=== PATIENT | female | born 1985 | race Caucasian/White ===

== ENCOUNTER 2018-05-03 14:50 | Inpatient (IN) ==
[2018-05-03] MEDS ORDERED: Naloxone 0.4 MG/ML INJ IVP PRN (17:50)
[2018-05-03] MEDS ORDERED: Ringers Solution, Lactated 1,000 ML IVC ONE (17:58)
--- NOTE | 2018-05-03 18:00 | Internal Med History&Physical ---
Date of Encounter: 05/03/18 Time of Encounter: 18:00 Internal Medicine - H&P: HPI History of present illness: Patient is a 33 year old female , 8 days post presented to [facility] for abnormal labs. She was having labs done for abdominal pain and labs were abnormal so was told to be seen. Patient states she has had bilateral flank pain for one week. Since , she has been taking Ibuprofen 800 mg tablets Q6h prn abdominal pain. Patient takes on average 1-2 tablets per day. She also has had nausea and has had little water intake in past several days. Patient has reviewed [facility] labs with me on her phone. Most notable for WBC of 16 , H&H 10.2, Neutrophils 81%, BUN 55, Creatinine 3.320, WBC 16k. She was also getting workup for a UTI. She received a message from her provider that her urine was positive for E coli. She was intended to go to [facility] for workup and treatment, but those beds are full and so she was recommended to go to [facility] for further eval. When patient arrived to [facility] ED, she was given IV bolus. Her vital signs were unremarkable, Temp 98F, BP 120/63, HR 51, normal O2 saturation. Labs re-demonstrated elevated creatinine this time was 3.91, with BUN 83, bicarb is 13 with elevated anion gap 17. She had WBC 17, Alk phos is 156, and AST/ALT are normal. A CT abdomen/pelvis was done showing splenomegaly , and enlarged uterus findings that are consistent with recent state. She denies fevers/chills. Admits to n/v, dysuria. Past Med Surg Social Fam HX - Past Medical History Medical history: no medical history, other Psychiatric history: no psych history - Past Surgical History Surgical History: cholecystectomy Additional surgical history: TOP TEETH REMOVED - Social History Smoking Status: Former smoker Smokeless Tobacco Status: No Alcohol use: none Drug use: none Internal Medicine - H&P: Meds Buprenorphine HCl/Naloxone HCl [Buprenorphin-Naloxon 8-2 mg Sl] 2 tab SL DAILY 05/03/18 [History] Dicyclomine [Bentyl] 10 mg PO QID 05/03/18 [History] Docusate Sodium [Colace] 100 mg PO BID PRN 05/03/18 [History] Ibuprofen [Ibuprofen] 800 mg PO TID PRN 05/03/18 [History] Omeprazole [PriLOSEC] 20 mg PO DAILY 05/03/18 [History] Vits #90/Iron Fum/FA [ Formula Tablet] 1 tab PO DAILY 05/03/18 [History] cephALEXin [Keflex] 500 mg PO QID 05/03/18 [History] 3 Allergy/AdvReac Type Severity Reaction Status Date / Time No Known Allergies Allergy Verified 05/03/18 17:39 All Systems PM: A 10-system review of systems was performed and is negative for pertinent findings except as documented above in the HPI. - Constitutional Constitutional: no fatigue, no fever(s), no lethargy, no night sweats, no weakness - Cardiovascular Cardiovascular ROS IM: no chest pain, no claudication, no diaphoresis, no dyspnea, no lightheadedness, no orthopnea - Respiratory Respiratory: no dyspnea, no dyspnea on exertion - Gastrointestinal Gastrointestinal: abdominal pain, constipation, nausea, no change in bowel habits, no change in stool character, no diarrhea, no dyspepsia, no melena, no vomiting - Genitourinary Genitourinary: dysuria, no hematuria - Musculoskeletal Musculoskeletal ROS IM: no numbness, no tingling - Integumentary Integumentary IM: no rash, no unusual bruising - Neurological Neurological ROS: no confusion, no convulsions, no focal weakness, no numbness, no tingling, no tremor(s) - Constitutional Vitals: Temp Pulse Resp BP Pulse Ox 98.3 F 76 19 106/69 99 05/03/18 17:02 05/03/18 17:02 05/03/18 17:02 05/03/18 17:02 05/03/18 17:02 Exam: Mucus membranes dry. - Head Head exam: Present: atraumatic, normocephalic - Eye Eye exam: Present: PERRL, conjuntiva pink, sclera anicteric Pupils: Present: PERRL - Neck Neck exam general surgery: Present: supple, trachea midline. Absent: lymphadenopathy - Respiratory Respiratory exam: Present: CTAB. Absent: accessory muscle use, rales, rhonchi, wheezes - Cardiovascular Cardiovascular exam: Present: RRR, +S1, +S2. Absent: diastolic murmur, gallop, rubs, systolic murmur - GI/Abdominal GI/Abdominal exam: Present: normal bowel sounds, soft, tenderness, no peritoneal signs. Absent: distended - Extremities Exam Extremities exam: Present: warm, radial pulses palpable and symmetrical. Absent : calf tenderness, cyanotic, pedal edema - Neurological Exam Neurological exam: Present: CN II-XII intact, oriented X3, no focal deficits. Absent: pronater drift, facial droop, speech deficit - Skin Skin exam: Present: dry, intact - Assessment and plan (1) Acute renal failure after delivery, delivered w/ condition Current Visit: No Status: Acute Assessment and plan: Suspect cause is combination of pre-renal or renal based on dehydration from poor PO intake and nausea, and NSAID use after . CT abdomen/pelvis did not show any renal abnormalities. Urinalysis showed proteinuria. Creatinine as outpatient was 3.320 and at [facility] worsened to 3.91. - Consult Nephrology - Obtain FENA, urine eosinophils - IV fluid hydration - Hold nephrotoxic agents, including NSAIDs - Recheck BMP in AM (2) UTI (urinary tract infection) Current Visit: No Status: Acute Assessment and plan: Cultures from outside facility came back + E coli 1 SIRS criteria, patient not septic. Start Rocephin Follow-up sensitivities Qualifiers: Urinary tract infection type: site unspecified Hematuria presence: with hematuria Qualified Code(s): N39.0 - Urinary tract infection, site not specified; R31.9 - Hematuria, unspecified (3) Anemia, Current Visit: Yes Status: Acute Assessment and plan: Recheck in AM< note that she is receiving IV fluids today and may have hemodilution on AM labs. (4) DVT prophylaxis Current Visit: Yes Status: Acute Assessment and plan: Heparin 5,000 units Q8H SQ - Time Spent With Patient Total time spent is greater than 50% in coordination of care (as documented) at patient's floor/unit and/or counseling patient:
[2018-05-03] MEDS: cefTRIAXone 1,000 MG in Water for inj. (sterile) 20 ML 10 ML IVP SCH (18:19)
[2018-05-03 19:35] LABS: Sodium, Urine 65.2 mEq/L
[2018-05-03] MEDS: Ringers Solution, Lactated 1,000 ML IVC SCH (19:53)
[2018-05-04] MEDS: *HR* Heparin 5,000 UNIT/ML VIAL SQ SCH ×3 (00:18→16:18)
[2018-05-04] MEDS: Ringers Solution, Lactated 1,000 ML IVC SCH (02:35)
[2018-05-04 05:01] LABS: Basophils % 0.3 %; Eosinophils # 0.1 K/mcL (0.0-0.6); Eosinophils % 0.7 %; Hematocrit 31.2 % (35.3-44.9); Hemoglobin 9.9 g/dL (11.5-15.4); Immature Granulocytes % 2.1 % (0-4); Lymphocytes # 1.8 K/mcL (0.6-4.6); Lymphocytes % 15.9 %; Mean Corpuscular HGB Conc 31.7 g/dL (31.6-35.5); Mean Corpuscular Hemoglobin 28.6 pg (28.0-33.3); Mean Corpuscular Volume 90.2 fL (83.0-100.0); Mean Platelet Volume 10.1 fL (9.4-12.4); Monocytes # 0.6 K/mcL (0.0-1.3); Monocytes % 5.3 %; Neutrophils # 8.4 K/mcL (1.6-8.9); Platelet Count 238 K/mcL (140-400); Red Blood Count 3.46 M/mcL (3.82-4.97); Red Cell Distribution Width 15.2 % (11.5-14.5); Segmented Neutrophils % 75.7 %
[2018-05-04 05:20] LABS: Calcium 8.2 mg/dL (8.6-10.3); Potassium 3.8 mEq/L (3.5-5.1)
[2018-05-04 05:24] LABS: Platelet Estimate Normal (Normal); Reactive Lymphocytes Present (Not Present)
[2018-05-04] MEDS: cefTRIAXone 1,000 MG in Water for inj. (sterile) 20 ML 10 ML IVP SCH (08:06)
[2018-05-04] MEDS: Prenatal Vit/FA 1 EACH TABLET PO SCH (08:07)
[2018-05-04] MEDS: BUPRENORPHINE HCL SL SCH (08:09)
[2018-05-04] MEDS: NALOXONE HCL SL SCH (08:09)
[2018-05-04] MEDS: Acetaminophen 325 MG TABLET PO PRN ×3 (08:13→22:54)
--- NOTE | 2018-05-04 09:45 | Internal Med Progress Note ---
<Em Gonzalez - Last Filed: 05/04/18 14:59> Hospitalist Progress Note - Encounter Date of Encounter: 05/04/18 Time of Encounter: 09:39 - Subjective Interval History: Ms. Alatorre is a 33 yo now 13 days who presented to [facility] on with complaints of abdominal pain. She states approximately 5 days post- she began to experience bilateral abdominal pain, worsened with coughing , deep breaths, and movement. She states she had a couple measurements of elevated blood pressure during her , she had a normal vaginal , and is now breast-feeding. She admits increased frequency and feeling of incomplete emptying after urinating but denies any hematuria or dysuria. She continues to have vaginal spotting but denies any fever, chills, CP, shortness of breath. She drinks 6 cans of soda per day and states she does not drink much water. Today the patient is feeling slightly improved. She states she has continued abdominal pain with deep breaths. She is eating and drinking well. - Exam Vitals: Temp Pulse Resp BP Pulse Ox 98.7 F 88 20 107/66 98 05/04/18 07:50 05/04/18 07:50 05/04/18 07:50 05/04/18 07:50 05/04/18 07:50 Exam: Mucus membranes dry. - Assessment and Plan (1) YAEL (acute kidney injury) Current Visit: Yes Status: Acute Assessment and Plan: - Cr elevated to 3.91 at [facility], today is down to 2.99 - Continue fluids at 150ml/hour LR - Urine sodium 65.2, urine total protein 122, albumin 2.8 - No evidence of edema indicative of nephrotic syndrome, BP stable making preeclampsia unlikely though reportedly they were high during , BUN/Cr >20 indicating likely prerenal etiology - Consulting nephrology, they have discontinued prilosec - Avoiding nephrotoxic medications (2) UTI (urinary tract infection) Current Visit: Yes Status: Acute Assessment and Plan: -Continue rocephin - Urine cultures pending - [facility] contacted to obtain culture sensitivities (3) Anemia, Current Visit: Yes Status: Acute Assessment and Plan: - Hemoglobin 9.9 today, down from 10.1 at [facility], likely dilutional - Will continue to monitor with CBC (4) DVT prophylaxis Current Visit: Yes Status: Acute - Time Spent with Patient Total time spent is greater than 50% in coordination of care (as documented) at patient's floor/unit and/or counseling patient: Internal Medicine: Result - Labs CBC & Chem 7: 05/04/18 03:54 05/04/18 03:54 Labs: Short CBC 05/04/18 Range/Units 03:54 WBC 11.1 (4.3-11.1) K/mcL Hgb 9.9 L (11.5-15.4) g/dL Hct 31.2 L (35.3-44.9) % Plt Count 238 (140-400) K/mcL Neutrophils # 8.4 (1.6-8.9) K/mcL BMP 05/04/18 03:54 Sodium 140 Potassium 3.8 Chloride 113 H Carbon Dioxide 17 L BUN 69 H Creatinine 2.99 H Glucose 72 Calcium 8.2 L Consult Discharge Plan - Plan Referrals: NONE,PCP [Primary Care Provider] - <Susanne Garcia - Last Filed: 05/04/18 15:09> Hospitalist Progress Note - Encounter Date of Encounter: 05/04/18 - Exam Vitals: Temp Pulse Resp BP Pulse Ox 98.0 F 82 19 101/51 96 05/04/18 11:21 05/04/18 11:21 05/04/18 11:21 05/04/18 11:21 05/04/18 11:21 - Assessment and Plan (1) Acute renal failure after delivery, delivered w/ condition Current Visit: No Status: Inactive (2) UTI (urinary tract infection) Current Visit: No Status: Inactive (3) Anemia, Current Visit: Yes Status: Acute (4) DVT prophylaxis Current Visit: Yes Status: Acute - Time Spent with Patient Total time spent is greater than 50% in coordination of care (as documented) at patient's floor/unit and/or counseling patient: Internal Medicine: Result - Labs CBC & Chem 7: 05/04/18 03:54 05/04/18 03:54 Labs: Short CBC 05/04/18 Range/Units 03:54 WBC 11.1 (4.3-11.1) K/mcL Hgb 9.9 L (11.5-15.4) g/dL Hct 31.2 L (35.3-44.9) % Plt Count 238 (140-400) K/mcL Neutrophils # 8.4 (1.6-8.9) K/mcL BMP 05/04/18 03:54 Sodium 140 Potassium 3.8 Chloride 113 H Carbon Dioxide 17 L BUN 69 H Creatinine 2.99 H Glucose 72 Calcium 8.2 L - Attending Attestation I examined this patient and my medical decision-making was reviewed with the Resident Physician. I agree with the documented findings, disposition and treatment plan as described except to the extent set forth below. <Susanne Garcia - Last Filed: 05/04/18 15:09> (2) UTI (urinary tract infection) Qualifiers: Urinary tract infection type: site unspecified Hematuria presence: with hematuria Qualified Code(s): N39.0 - Urinary tract infection, site not specified; R31.9 - Hematuria, unspecified
--- NOTE | 2018-05-04 11:11 | Nephrology Consult Note ---
Date of Encounter: 05/04/18 Time of Encounter: 11:00 Assessment and Plan (1) YAEL (acute kidney injury) Current Visit: Yes Status: Acute 34 day #9. Patient has been borderline hypotensive since admission. YAEL likely due to ATN from nephrotoxins. Other possible causes of ATN includes volume depletion and ischemia. Patient denies vomiting, diarrhea, or bleeding. Does not use diuresis. She does appear dry. She has also been using ibuprofen 800mg q6H since she gave and chronically uses prilosec. patient has no symptoms of reflux. Denies nausea, vomiting since admission. I will d/c prilosec for now. UA reviewed: urine creatinine and sodium are unremarkable, but does have increased total protein. Pending Urine osm. Continue IV fluids. Avoid nephrotoxins if possible. Strict I/Os. I expect her kidney function to gradually improve. (2) Anemia, Current Visit: Yes Status: Acute Stable. Continue to monitor. (3) UTI (urinary tract infection) Current Visit: Yes Status: Acute Antibiotics can be nephrotoxic but Ok to continue in the setting of UTI. Qualifiers: Qualified Code(s): N39.0 - Urinary tract infection, site not specified; R31.9 - Hematuria, unspecified History of Present Illness - Reason for Consult Consult date: 05/04/18 Acute Kidney Injury - Chief Complaint Abdominal pain and abnormal labs - History of Present Illness 33 3P3 9 days post presented to [facility] ED yesterday for abnormal labs. She has had flank pain for 1 week and had lab work done which demonstrated worsened kidney function. She was told to go to ED due to abnormal labs for further work- up. Since , she has been taking Ibuprofen 800 mg tablets Q6h prn abdominal pain. Patient takes on average 1-2 tablets per day. She also has had nausea and has had little water intake in past several days. Outpatient lab work was notable for WBC of 16, H&H 10.2, Neutrophils 81%, BUN 55, Creatinine 3.32, WBC 16k. Her urine was also positive for E. Coli. She received IVF at [facility], alk phos 156, AST/ALT were unremarkable. CT deomonstrated splenomegaly and enlarged uterus consistent with PP state. Today, she denies f/c/n/v. Her flank pain has improved and no longer has dysuria, hematuria. She does admit to lochia, but no malodorous discharge. She has no acute complaints. Past Med Surg Social Fam HX - Past Medical History Medical history: no medical history, other Psychiatric history: no psych history - Past Surgical History Surgical History: cholecystectomy Additional surgical history: TOP TEETH REMOVED - Social History Smoking Status: Former smoker Smokeless Tobacco Status: No Alcohol use: none Drug use: none Medications and Allergies Buprenorphine HCl/Naloxone HCl [Buprenorphin-Naloxon 8-2 mg Sl] 2 tab SL DAILY 05/03/18 [History] Dicyclomine [Bentyl] 10 mg PO QID 05/03/18 [History] Docusate Sodium [Colace] 100 mg PO BID PRN 05/03/18 [History] Ibuprofen [Ibuprofen] 800 mg PO TID PRN 05/03/18 [History] Omeprazole [PriLOSEC] 20 mg PO DAILY 05/03/18 [History] Vits #90/Iron Fum/FA [ Formula Tablet] 1 tab PO DAILY 05/03/18 [History] cephALEXin [Keflex] 500 mg PO QID 05/03/18 [History] 3 Allergy/AdvReac Type Severity Reaction Status Date / Time No Known Allergies Allergy Verified 05/03/18 17:39 Review of Systems All Systems: reviewed and no additional remarkable complaints except as stated Constitutional: as per HPI Nose, mouth and throat: as per HPI Cardiovascular: as per HPI Respiratory: as per HPI Gastrointestinal: as per HPI Genitourinary Female: as per HPI Musculoskeletal: as per HPI Integumentary: as per HPI Neurological: as per HPI Hematologic/Lymphatic: as per HPI Exam - Vital Signs Vital signs: Initial Vital Signs Temp Pulse Resp BP Pulse Ox 98.3 F 76 19 106/69 99 05/03/18 17:02 05/03/18 17:02 05/03/18 17:02 05/03/18 17:02 05/03/18 17:02 Vital Signs - Last 8 Hours Temp Pulse Resp BP Pulse Ox 05/04/18 07:50 98.7 F 88 20 107/66 98 05/04/18 03:40 98.8 F 84 17 101/57 98 Intake and Output 05/03/18 05/04/18 05/04/18 23:59 07:59 15:59 Intake Total 310 / 310 1300 / 1300 Output Total 700 / 700 850 / 850 Balance -390 / -390 450 / 450 Intake: IV Fluids 1000 / 1000 Lactated Ringers 1,000 ML @ 150 1000 / 1000 mls/hr IVC .[id number] [facility] Rx#: [id number] Rocephin 1,000 MG In Water for inj. (sterile) 10 ML @ 600 mls/ hr IVP DAILY [facility] Rx#:[id number] Oral 300 / 300 300 / 300 Output: Urine 700 / 700 850 / 850 Other: Meal two cans of chicken and noodle soup Percent of Meal Consumed 100% # Voids 1 # Bowel Movements 1 Weight 67.4 kg - General Appearance General appearance: well-developed, well-nourished, appears started age Respiratory: no kyphosis, no scoliosis Cardiology: no murmurs, no rub, no gallops, no edema, regular rate, regular rhythm, normal S1, normal S2 Integumentary: no rash, warm and dry Neurologic: no focal deficit, no asterixis, alert and oriented x3, strength 5/5 Musculoskeletal: no deformities, no erythema, no cyanosis, no clubbing Psychiatric: mood/affect appropriate, cooperative Results - Lab Results 05/04/18 03:54 05/04/18 03:54 Most recent lab results Calcium 8.2 mg/dL (8.6-10.3) L 05/04/18 03:54 Urine Creatinine 37 mg/dL 05/03/18 19:08 Urine Sodium 65.2 mEq/L 05/03/18 19:08 Urine Total Protein 122 mg/dL (1-14) H 05/03/18 19:08 Consult Discharge Plan - Plan Referrals: NONE,PCP [Primary Care Provider] -
[2018-05-05] MEDS: *HR* Heparin 5,000 UNIT/ML VIAL SQ SCH ×2 (00:41→08:30)
[2018-05-05] MEDS: Acetaminophen 325 MG TABLET PO PRN ×2 (04:25→11:05)
[2018-05-05 04:51] LABS: Basophils # 0.1 K/mcL (0.0-0.2); Basophils % 0.4 %; Eosinophils # 0.2 K/mcL (0.0-0.6); Eosinophils % 1.5 %; Hematocrit 29.4 % (35.3-44.9); Hemoglobin 9.2 g/dL (11.5-15.4); Immature Granulocytes % 2.1 % (0-4); Lymphocytes # 2.6 K/mcL (0.6-4.6); Lymphocytes % 20.7 %; Mean Corpuscular HGB Conc 31.3 g/dL (31.6-35.5); Mean Corpuscular Hemoglobin 28.2 pg (28.0-33.3); Mean Corpuscular Volume 90.2 fL (83.0-100.0); Mean Platelet Volume 9.9 fL (9.4-12.4); Monocytes # 1.2 K/mcL (0.0-1.3); Monocytes % 9.1 %; Platelet Count 258 K/mcL (140-400); Red Blood Count 3.26 M/mcL (3.82-4.97); Red Cell Distribution Width 15.1 % (11.5-14.5); Segmented Neutrophils % 66.2 %
[2018-05-05 05:09] LABS: Calcium 9.1 mg/dL (8.6-10.3)
[2018-05-05 05:30] LABS: Neutrophils # 8.3 K/mcL (1.6-8.9)
[2018-05-05 05:31] LABS: Platelet Estimate Normal (Normal); Reactive Lymphocytes Present (Not Present)
[2018-05-05 07:41] VITALS: BP 133/82
[2018-05-05] MEDS ORDERED: CefTRIAXone 1,000 MG VIAL ONE (08:26)
[2018-05-05] MEDS: cefTRIAXone 1,000 MG in Water for inj. (sterile) 20 ML 10 ML IVP SCH (08:30)
[2018-05-05] MEDS: Prenatal Vit/FA 1 EACH TABLET PO SCH (08:31)
[2018-05-05] MEDS: NALOXONE HCL SL SCH (08:31)
[2018-05-05] MEDS: BUPRENORPHINE HCL SL SCH (08:31)
--- NOTE | 2018-05-05 09:29 | Discharge Summary ---
<Kt Andersen - Last Filed: 05/05/18 10:45> - NOTES TO OUTPATIENT PROVIDER Notes to Outpatient Provider: Patient's kidney function improving and she was making adequate urine without any UTI symptoms. Advised her to discontinue NSAIDs and PPIs for the time being. Will obtain BMP in 2 days to bring into PCP for hospital follow up Date of Encounter: 05/05/18 Time of Encounter: 08:40 - Discharge Diagnosis (1) YAEL (acute kidney injury) Priority: Primary Status: Acute (2) Anemia, Priority: Secondary Status: Acute (3) UTI (urinary tract infection) Priority: Secondary Status: Resolved Qualifiers: Qualified Code(s): N39.0 - Urinary tract infection, site not specified; R31.9 - Hematuria, unspecified Hospital course: Ms. Alatorre is a 33 year old female now 14 days who presented to [facility] ED on 05/03/18 with complaints of abdominal pain. She states approximately 5 days post- she began to experience bilateral abdominal pain, worsened with coughing, deep breaths, and movement. Upon arrival to the ED her CT abdomen did not show any acute findings that would explain her pain. Her creatinine was found to elevated at 3.91 and this was suspected secondary to pre -renal from dehydration vs. ATN due to NSAID/PPI use which she admitted to. Patient did receive fluids and was started on Rocephin due to suspected UTI. Nephrology was consulted and recommended holding nephrotoxic agents and did not advise any further workup. Her creatinine did improve each day and she has been off fluids for the last 24 hours. She no longer has any lower urinary tract symptoms and completed 3 days of Rocephin and will not need antibiotics upon discharge. She will follow up with her PCP and obtain a BMP to monitor her kidney function in 2 days prior to that appointment. Discharge discussed with: patient, nurse - Time Spent with Patient Total time spent providing and/or coordinating discharge services: Greater than 30 minutes - Discharge Medications Home Medications: Buprenorphine HCl/Naloxone HCl [Buprenorphin-Naloxon 8-2 mg Sl] 2 tab SL DAILY 05/03/18 [History] Dicyclomine [Bentyl] 10 mg PO QID 05/03/18 [History] Docusate Sodium [Colace] 100 mg PO BID PRN 05/03/18 [History] Vits #90/Iron Fum/FA [ Formula Tablet] 1 tab PO DAILY 05/03/18 [History] Allergies/Adverse Reactions: 3 Allergy/AdvReac Type Severity Reaction Status Date / Time No Known Allergies Allergy Verified 05/03/18 17:39 Date of admission: 05/03/18 16:14 Primary care physician: PCP NONE Consults: 05/03/18 17:56 Consult to Nephrology [CONS] Routine Consulting Provider: Kidney Melissa/IONA/ROZ/TRISTAN Reason for Consult: acute kidney injury Call Completed: No Discharging clinician: Kt Andersen Anticipated date of discharge: 05/05/18 - Constitutional Vitals: Temp Pulse Resp BP Pulse Ox 98.4 F 66 16 133/82 97 05/05/18 07:37 05/05/18 07:37 05/05/18 07:37 05/05/18 07:37 05/05/18 07:37 Exam: General: Well appearing white female HEENT: Adentulous, dry mucus membranes, normocephalic, atraumatic, no scleral icterus Cardio: RRR, no murmurs, gallops, or rubs appreciated Respiratory: clear to auscultation, not in respiratory distress Abdomen: Tenderness to palpation on lateral RUQ, negative murphys, no tenderness at mcburneys point. Normal bowel sounds. No guarding or rebound. No suprapubic tenderness. Fundal height not palpated, no tenderness. Extremities: No peripheral edema, no rash - Patient Status Disposition: Home, Self-Care Condition: Good Functional capacity at discharge: independent ambulation Overall status at discharge: patient is back to baseline - Discharge Instructions Instructions: Urinary Tract Infection in Women (DC) Follow Up With: Andree Cardenas, [facility]ER [Advanced Practice Nurse] - 05/12/18 10:30 am (Please follow up as schedule...) NONE,PCP [Primary Care Provider] - Additional Instructions: Please follow up with your PCP within 1 week of discharge Obtain labwork in 2 days to monitor kidney function so that your PCP may see them - Diet and Activity Activity: increase activity as tolerated Diet: advance to your usual diet <Jun Milner - Last Filed: 05/05/18 17:12> Date of Encounter: 05/05/18 - Discharge Diagnosis (1) Acute renal failure after delivery, delivered w/ condition Status: Inactive (2) UTI (urinary tract infection) Status: Inactive Qualifiers: Urinary tract infection type: site unspecified Hematuria presence: with hematuria Qualified Code(s): N39.0 - Urinary tract infection, site not specified; R31.9 - Hematuria, unspecified (3) Anemia, Status: Acute (4) DVT prophylaxis Status: Acute Hospital course: Ms. Alatorre is a 33 year old female - Time Spent with Patient Total time spent providing and/or coordinating discharge services: Date of admission: 05/03/18 16:14 Primary care physician: PCP NONE Consults: 05/03/18 17:56 Consult to Nephrology [CONS] Routine Consulting Provider: Kidney Melissa/IONA/ROZ/TRISTAN Reason for Consult: acute kidney injury Call Completed: No - Constitutional Vitals: Temp Pulse Resp BP Pulse Ox 98.4 F 66 16 133/82 97 05/05/18 07:37 05/05/18 07:37 05/05/18 07:37 05/05/18 07:37 05/05/18 07:37 - Attending Attestation I examined this patient and my medical decision-making was reviewed with the Resident Physician Dr. Andersen. I agree with the documented findings, disposition and treatment plan as described except to the extent set forth below. Ms. Alatorre is a 33 year old female now 14 days who presented to [facility] ED on 05/03/18 with complaints of abdominal pain. She states approximately 5 days post- she began to experience bilateral abdominal pain, worsened with coughing, deep breaths, and movement. Upon arrival to the ED her CT abdomen did not show any acute findings that would explain her pain. Her creatinine was found to elevated at 3.91 and this was suspected secondary to pre -renal from dehydration as well ATN due to NSAID ( Motrin 800mg 4-5 tabs /day ) . Pt was started on IV hydration, her Cr started trending down. So will d/c her home in stable condition today. Counseled her about NSAID usage. Gen: A, A, O x3 Back: No CVA tenderness
== END 2018-05-05 12:02 | disposition home or self-care (01) | DRG 561 ==
LOC: 2ANU 16:14
PROVIDERS: ADMIT Internal Medicine; ATTEND Internal Medicine

== ENCOUNTER 2018-06-07 21:37 | Inpatient (IN) ==
[2018-06-08] MEDS ORDERED: *HR* HYDROcodone/Acet 5/325 mg TABLET PO ONE (01:02)
[2018-06-08] MEDS ORDERED: Ondansetron 4 MG/2 ML VIAL IVP ONE (01:03)
[2018-06-08] MEDS ORDERED: *HR* FentaNYL (PF) 100 MCG/2 ML VIAL IVP PRN (03:01)
[2018-06-08] MEDS ORDERED: Ondansetron 4 MG/2 ML VIAL IVP PRN (03:01)
[2018-06-08] MEDS ORDERED: Naloxone 0.4 MG/ML INJ IVP PRN (03:01)
[2018-06-08 03:39] LABS: Bilirubin,Urine Negative (Negative); Blood,Urine Trace (Negative); Color,Urine Yellow (Yellow); Glucose,Urine (UA) Normal (Normal); Ketones,Urine Negative (Negative); Leukocyte Esterase,Urine Large (Negative); Nitrite,Urine Negative (Negative); PH,Urine 6.5 pH Units (5.0-8.0); Protein,Urine Trace mg/dL (Neg-Trace); Specific Gravity,Urine < 1.005 (1.010-1.025); Urobilinogen,Urine Normal (Normal)
[2018-06-08 03:48] LABS: Clarity,Urine Slightly Hazy (Clear)
[2018-06-08 03:51] LABS: Bacteria,Urine Few per hpf (None-Few); Hyaline Casts,Urine None Seen per lpf (None-Few); Squamous Epithelial Cell,Urine Few per lpf (None-Few); WBC,Urine 50-100 per hpf (0-3)
[2018-06-08 03:56] LABS: Basophils % 0.2 %; Eosinophils % 0.2 %; Hematocrit 22.1 % (35.3-44.9); Hemoglobin 7.1 g/dL (11.5-15.4); Immature Granulocytes % 0.2 % (0-4); Lymphocytes # 1.5 K/mcL (0.6-4.6); Lymphocytes % 17.1 %; Mean Corpuscular HGB Conc 32.1 g/dL (31.6-35.5); Mean Platelet Volume 9.6 fL (9.4-12.4); Monocytes # 1.3 K/mcL (0.0-1.3); Monocytes % 13.9 %; Neutrophils # 6.1 K/mcL (1.6-8.9); Platelet Count 213 K/mcL (140-400); Red Blood Count 2.54 M/mcL (3.82-4.97); Red Cell Distribution Width 13.8 % (11.5-14.5); Segmented Neutrophils % 68.4 %
[2018-06-08] MEDS: Acetaminophen 325 MG TABLET PO PRN ×2 (04:03→15:09)
[2018-06-08] MEDS: 0.9 % Sodium Chloride 1,000 ML IVC SCH ×2 (04:03→12:09)
[2018-06-08 04:04] LABS: INR 1.6
[2018-06-08 04:15] LABS: Albumin 3.3 g/dL (3.5-5.7); Albumin/Globulin Ratio 0.9 (1.1-2.2); Bilirubin,Total 0.4 mg/dL (0.3-1.0); Calcium 8.7 mg/dL (8.6-10.3); Globulin 3.7 g/dL (2.4-3.5); Magnesium 1.8 mg/dL (1.6-2.6); Potassium 3.6 mEq/L (3.5-5.1)
--- NOTE | 2018-06-08 04:25 | Internal Med History&Physical ---
Date of Encounter: 06/08/18 Time of Encounter: 01:50 Internal Medicine - H&P: HPI Chief complaint: flank pain; vomtinig; fevers Admitted From: Hospital to Hospital Transfer Plans for Post Hospital Care: Home History of present illness: Ms. Alatorre is a 33 year old female who presents with a 3-4 day history of right- sided flank pain, protracted nausea, vomiting, minimal to zero oral intake, and some diarrhea. She developed fevers to 104 degrees Fahrenheit at home. She therefore went to the ER at [facility] where she was seen and evaluated and diagnosed with acute kidney injury and anemia. CT scan imaging was obtained which revealed concerning findings for polynephritis, hydronephrosis, and likely recently passed kidney stone on the right side. Patient was therefore transferred to [facility] for further workup and care. Upon my assessment of the patient, she appears to be acutely ill, dehydrated, but nontoxic. She recently gave to her third child about 6 weeks ago. She was hospitalized a few weeks ago with acute kidney injury. She was eventually discharged home with improved kidney function and she was feeling well until a few days ago. She now has acute kidney injury again. She is profoundly anemic and states that she had significant vaginal bleeding after her delivery until about 2 weeks ago. She denies any more vaginal bleeding. She denies any hematemesis, melena, or hematochezia. She did have some hematuria the last couple days with her flank pain and dysuria. She denies any prior history of kidney stones or kidney problems prior to her last hospitalization. Of note, patient has a history of opiate dependence and has been on Suboxone for the last 4 years. However, due to her acute illness above, she has not been able to take her Suboxone for the last 3-4 days and is at risk of acute opiate withdrawal. She denies any tobacco, alcohol, or any street drug use. Her urine drug screen at [facility] was negative. Past Med Surg Social Fam HX - Past Medical History Attestation: Yes The following information was validated with the patient. Source: patient, old records reviewed, other Medical history: renal disease Additional medical history: prescription opiate dependence Psychiatric history: no psych history - Past Surgical History Surgical History: cholecystectomy Additional surgical history: TOP TEETH REMOVED - Social History Smoking Status: Former smoker Smokeless Tobacco Status: No Alcohol use: none Drug use: none Current living situation: Home, With Family Activity Level: Independent ambulation Recent Out of Country Travel Within the Last 8 Weeks: No - Family History Mother Hx Family Genitourinary Disorders: No Father Hx Family Genitourinary Disorders: No Internal Medicine - H&P: Meds Buprenorphine HCl/Naloxone HCl [Buprenorphin-Naloxon 8-2 mg Sl] 2 tab SL DAILY 05/03/18 [History] 3 Allergy/AdvReac Type Severity Reaction Status Date / Time No Known Allergies Allergy Verified 06/07/18 19:33 - Constitutional Constitutional: chills, fever(s), no night sweats - EENT Eyes: no blurry vision, no change in vision Ears: no ear pain, no tinnitus Nose, mouth and throat: no nasal congestion, no sinus pressure, no sore throat - Cardiovascular Cardiovascular ROS IM: no chest pain, no dyspnea, no orthopnea, no palpitations - Respiratory Respiratory: no cough, no hemoptysis, no chest congestion, no excessive phlegm production, no change in phlegm color, no pain with cough - Gastrointestinal Gastrointestinal: diarrhea, nausea, vomiting, no abdominal pain, no heartburn, no hematemesis, no hematochezia, no melena - Genitourinary Genitourinary: dysuria, flank pain, hematuria, urinary urgency - Musculoskeletal Musculoskeletal ROS IM: no arthralgias, no back pain - Integumentary Integumentary IM: no rash, no jaundice - Neurological Neurological ROS: no dizziness, no focal weakness, no frequent falls, no headache(s) - Psychiatric Psychiatric: no anxiety, no depression - Endocrine Endocrine IM: no polydipsia, no polyphagia, no polyuria - Hematologic/Lymphatic Hematologic/Lymphatic: no easy bruising - Allergic/Immunologic Allergic/Immunologic: no wheezing, no GI upset with certain foods - Constitutional Vitals: Temp Pulse Resp BP Pulse Ox 99.4 F 100 16 110/72 96 06/08/18 03:06 06/08/18 03:06 06/08/18 03:06 06/08/18 03:06 06/08/18 03:06 General appearance: Present: cooperative, mild distress, A&O X 3, pleasant, answers questions appropriately Exam: acutely ill but non-toxic - Head Head exam: Present: atraumatic, normal inspection - Eye Eye exam: Present: EOMI, PERRL. Absent: scleral icterus Pupils: Present: normal accommodation - ENT ENT exam: Present: mucous membranes dry, normal exam, normal oropharynx - Neck Neck exam general surgery: Present: full ROM, supple. Absent: lymphadenopathy, tenderness, nuchal rigidity, thyromegaly - Respiratory Respiratory exam: Present: CTAB. Absent: chest wall tenderness, rales, respiratory distress, rhonchi, wheezes - Cardiovascular Cardiovascular exam: Present: +S1, +S2, systolic murmur (suspect flow murmur), tachycardia (HR 105). Absent: diastolic murmur - GI/Abdominal GI/Abdominal exam: Present: normal bowel sounds, soft, tenderness (RLQ radiating from right flank). Absent: guarding, hepatomegaly, mass, rebound, splenomegaly - Extremities Exam Extremities exam: Present: full ROM, warm, radial pulses palpable and symmetrical. Absent: calf tenderness, joint swelling, normal capillary refill ( roughly 3 seconds), pedal edema, tenderness - Back Exam Back exam: Present: CVA tenderness (R), normal inspection. Absent: CVA tenderness (L) - Neurological Exam Neurological exam: Present: alert, CN II-XII intact, oriented X3, no focal deficits, strengths equal and symetr throughout - Psychiatric Psychiatric exam: Present: normal affect, normal mood - Skin Skin exam: Present: dry, intact, warm Internal Med - H&P Results - Labs CBC & Chem 7: 06/08/18 03:40 06/08/18 03:40 Labs: Short CBC 06/08/18 Range/Units 03:40 WBC 9.0 (4.3-11.1) K/mcL Hgb 7.1 L (11.5-15.4) g/dL Hct 22.1 L (35.3-44.9) % Plt Count 213 (140-400) K/mcL Neutrophils # 6.1 (1.6-8.9) K/mcL BMP 06/08/18 03:40 Sodium 136 Potassium 3.6 Chloride 102 Carbon Dioxide 23 BUN 25 H Creatinine 1.83 H Glucose 104 Calcium 8.7 Liver Function 06/08/18 Range/Units 03:40 Total Bilirubin 0.4 (0.3-1.0) mg/dL AST 10 L (13-39) Units/L ALT 11 (7-52) Units/L Alkaline Phosphatase 84 (34-104) Units/L Albumin 3.3 L (3.5-5.7) g/dL Urine 06/08/18 Range/Units 03:30 Urine Color Yellow (Yellow) Urine Clarity Slightly Hazy (Clear) Urine pH 6.5 (5.0-8.0) pH Units Ur Specific [place] < 1.005 L (1.010-1.025) Urine Protein Trace (Neg-Trace) mg/dL Urine Glucose (UA) Normal (Normal) mg/dL - Diagnostic Studies CT scan - abdomen Status: image reviewed by me (right sided hydronephrosis; report reviewed as well) - Assessment and plan (1) Acute pyelonephritis Current Visit: Yes Status: Acute Assessment and plan: 1. Blood and urine cultures ordered. 2. I will place her on IV Rocephin and follow cultures. 3. Consider repeat imaging if fevers do not defervesce within 2 -3 days. 4. IVF hydration. 5. Pain control with IV Fentanyl. Resume Suboxone and stop Fentanyl when clinically stable. (2) Acute blood loss anemia Current Visit: Yes Status: Acute Assessment and plan: 1. Likely from recent vaginal bleeding post-. Per patient, resolved. 2. Monitor H/H closely and transfuse if necessary. 3. May need to consult VENDING MACHINE COIN COLLECTOR if she develops recurrent vaginal bleeding. (3) YAEL (acute kidney injury) Current Visit: Yes Status: Acute Assessment and plan: 1. Will hydrate with IVF, treat pyelonephritis. 2. Will order kidney ultrasound. 3. Consult Urology and Nephrology for kidney stone and YAEL respectively. (4) DVT prophylaxis Current Visit: Yes Status: Acute Assessment and plan: 1. EPCD's.
--- NOTE | 2018-06-08 07:56 | Urology - Consult Note ---
<Shilpa Jiménez N - Last Filed: 06/08/18 07:53> Date of Encounter: 06/08/18 Time of Encounter: 07:54 - Assessment and Plan (1) Hydronephrosis, right Current Visit: Yes Status: Acute Assessment and plan: Patient is a 33 year old female who presents with hydronephrosis of right kidney and proximal ureter. Patient denies history of renal stones, however she is recently . CT suggestive of recent stone passage. Patient is voiding without difficulty and unaware of any stone passage. Creatinine is improved. Discussed future repeat imaging with renal ultrasound to reevaluate hydronephrosis. Will continue to follow. (2) Acute pyelonephritis Current Visit: Yes Status: Acute Assessment and plan: Patient is a 33 year old female who presents with a history of right flank pain , febrile illness, perinephric stranding on CT suggestive of pyelonephritis. Patient has been placed on IV Rocephin with clinical improvement. Urine culture is pending. Vital signs are stable. Temp 99.7F. WBC reassuring. Will continue to follow. Urology CN:HPI Consult date: 06/08/18 Reason for consult Urology: Hydronephrosis (right) History of present illness: Patient is a 33 year old female who presents with a history of right flank pain , hydronephrosis, and febrile illness. Patient states symptoms began approximately 4 days ago with subtle flank pain, nausea and vomiting. Patient states she decided to go to [facility] ED yesterday when at home oral temperature reached [address] abdomen and pelvis and was transferred to [facility]. Findings suggest recently passed renal stone and pyelonephritis. Patient denies known personal history of renal stones and denies known family history of renal stones. Patient is 6 weeks and states and vaginal delivery were both uncomplicated by infection. Currently, patient is sitting upright in bed eating breakfast in no apparent distress. States flank pain is improved, she is voiding without difficulty, experienced normal BM, and she is tolerating normal diet. Patient denies fever, chills, dysuria, gross hematuria. Past Med Surg Social Fam HX - Past Medical History Medical history: renal disease Additional medical history: prescription opiate dependence Psychiatric history: no psych history - Past Surgical History Surgical History: cholecystectomy Additional surgical history: TOP TEETH REMOVED - Social History Smoking Status: Former smoker Smokeless Tobacco Status: No Alcohol use: none Drug use: none - Family History Mother Hx Family Genitourinary Disorders: No Father Hx Family Genitourinary Disorders: No Medications and Allergies Buprenorphine HCl/Naloxone HCl [Buprenorphin-Naloxon 8-2 mg Sl] 2 tab SL DAILY 05/03/18 [History] Omeprazole [PriLOSEC] 20 mg PO DAILY 06/08/18 [History] Ondansetron HCl 8 mg PO BID PRN 06/08/18 [History] 3 Allergy/AdvReac Type Severity Reaction Status Date / Time No Known Allergies Allergy Verified 06/07/18 19:33 Review of Systems - Constitutional fatigue, no chills, no fever(s) - EENT Nose, mouth and throat: no dizziness, no headache(s) - Cardiovascular no chest pain, no diaphoresis, no dyspnea - Respiratory no cough, no dyspnea - Gastrointestinal no abdominal pain, no nausea, no vomiting - Genitourinary Genitourinary: no difficulty urinating, no dysuria, no flank pain, no pelvic pain, no urinary frequency, no urinary hesitancy, no urinary urgency - Musculoskeletal no back pain, no muscle weakness - Integumentary no erythema, no rash, no swelling - Neurological no confusion, no syncope - Psychiatric no anxiety, no confusion - Hematologic/Lymphatic no easy bleeding, no easy bruising, no lymphadenopathy - Allergic/Immunologic no throat swelling, no wheezing Exam Initial Vital Signs Temp Pulse Resp BP Pulse Ox 98.4 F 102 16 102/60 100 06/07/18 23:10 06/07/18 23:10 06/07/18 23:10 06/07/18 23:10 06/07/18 23:10 - General physical appearance Present: well developed, no distress, no pain - Eyes Present: PERRL, normal ocular movement - ENT Present: normal nares, no hearing loss, no congestion - Neck Present: no masses, trachea midline - Respiratory Present: normal respiratory effort - Cardiovascular Cardiovascular exam IM: RRR - Abdomen Abdomen: Present: soft, non tender. Absent: guarding, distended - Integumentary Present: no rash, no abnormal pigmentation - Neurologic Present: normal coordination - Musculoskeletal Present: other (no pedal edema ) Urology Results - Labs 06/08/18 03:40 06/08/18 03:40 Abnormal lab results RBC 2.54 M/mcL (3.82-4.97) L 06/08/18 03:40 Hgb 7.1 g/dL (11.5-15.4) L 06/08/18 03:40 Hct 22.1 % (35.3-44.9) L 06/08/18 03:40 PT 18.0 Seconds (9.4-12.1) H 06/08/18 03:40 BUN 25 mg/dL (6-20) H 06/08/18 03:40 Creatinine 1.83 mg/dL (0.60-1.20) H 06/08/18 03:40 Est GFR ( Amer) 38 (> 60) L 06/08/18 03:40 Est GFR (Non-Af Amer) 32 (> 60) L 06/08/18 03:40 AST 10 Units/L (13-39) L 06/08/18 03:40 Albumin 3.3 g/dL (3.5-5.7) L 06/08/18 03:40 Globulin 3.7 g/dL (2.4-3.5) H 06/08/18 03:40 Albumin/Globulin Ratio 0.9 (1.1-2.2) L 06/08/18 03:40 Ur Specific [place] < 1.005 (1.010-1.025) L 06/08/18 03:30 Urine Blood Trace (Negative) H 06/08/18 03:30 Ur Leukocyte Esterase Large (Negative) H 06/08/18 03:30 Urine Microscopic RBC 3-5 per hpf (0-3) H 06/08/18 03:30 Urine Microscopic WBC 50-100 per hpf (0-3) H 06/08/18 03:30 Diabetes panel 06/08/18 Range/Units 03:40 Sodium 136 (136-145) mEq/L Potassium 3.6 (3.5-5.1) mEq/L Chloride 102 (98-107) mEq/L Carbon Dioxide 23 (23-29) mEq/L BUN 25 H (6-20) mg/dL Creatinine 1.83 H (0.60-1.20) mg/dL Glucose 104 (70-105) mg/dL Calcium 8.7 (8.6-10.3) mg/dL AST 10 L (13-39) Units/L ALT 11 (7-52) Units/L Alkaline Phosphatase 84 (34-104) Units/L Albumin 3.3 L (3.5-5.7) g/dL Calcium panel 06/08/18 Range/Units 03:40 Calcium 8.7 (8.6-10.3) mg/dL Albumin 3.3 L (3.5-5.7) g/dL Pituitary panel 06/08/18 Range/Units 03:40 Sodium 136 (136-145) mEq/L Potassium 3.6 (3.5-5.1) mEq/L Chloride 102 (98-107) mEq/L Carbon Dioxide 23 (23-29) mEq/L BUN 25 H (6-20) mg/dL Creatinine 1.83 H (0.60-1.20) mg/dL Glucose 104 (70-105) mg/dL Calcium 8.7 (8.6-10.3) mg/dL Adrenal panel 06/08/18 Range/Units 03:40 Sodium 136 (136-145) mEq/L Potassium 3.6 (3.5-5.1) mEq/L Chloride 102 (98-107) mEq/L Carbon Dioxide 23 (23-29) mEq/L BUN 25 H (6-20) mg/dL Creatinine 1.83 H (0.60-1.20) mg/dL Glucose 104 (70-105) mg/dL Calcium 8.7 (8.6-10.3) mg/dL Total Bilirubin 0.4 (0.3-1.0) mg/dL AST 10 L (13-39) Units/L ALT 11 (7-52) Units/L Alkaline Phosphatase 84 (34-104) Units/L Albumin 3.3 L (3.5-5.7) g/dL All other labs normal. - Imaging CT scan - abdomen: report reviewed, image reviewed CT scan - pelvis: report reviewed, image reviewed Consult Discharge Plan - Plan Referrals: Andree Cardenas, DATABASE MARKETING SPECIALIST [Primary Care Provider] - <Joe Glaser - Last Filed: 06/08/18 14:02> Date of Encounter: 06/08/18 - Assessment and Plan (1) Hydronephrosis Current Visit: Yes Status: Acute Assessment and plan: I reviewed the ct scan. thickened bladder wall and bilateral hydronephrosis. unsure etiology this far removed from . pt also anemic could be infectious etiology, chronic anatomic abnormality. If renal function doesn't improve or she spikes temp overnight I feel she needs cystoscopy and bilateral ureteral stent placement which would be done in the afternoon tomorrow. will see in the AM pt seen with PA. I agree with findings. Qualifiers: Hydronephrosis type: other Qualified Code(s): N13.39 - Other hydronephrosis Exam Initial Vital Signs Temp Pulse Resp BP Pulse Ox 98.4 F 102 16 102/60 100 06/07/18 23:10 06/07/18 23:10 06/07/18 23:10 06/07/18 23:10 06/07/18 23:10 Urology Results - Labs 06/08/18 09:00 06/08/18 03:40 Abnormal lab results RBC 2.54 M/mcL (3.82-4.97) L 06/08/18 03:40 Hgb 7.0 g/dL (11.5-15.4) L 06/08/18 09:00 Hct 22.2 % (35.3-44.9) L 06/08/18 09:00 PT 18.0 Seconds (9.4-12.1) H 06/08/18 03:40 BUN 25 mg/dL (6-20) H 06/08/18 03:40 Creatinine 1.83 mg/dL (0.60-1.20) H 06/08/18 03:40 Est GFR ( Amer) 38 (> 60) L 06/08/18 03:40 Est GFR (Non-Af Amer) 32 (> 60) L 06/08/18 03:40 AST 10 Units/L (13-39) L 06/08/18 03:40 Creatine Kinase 26 Units/L (30-223) L 06/08/18 03:40 Albumin 3.3 g/dL (3.5-5.7) L 06/08/18 03:40 Globulin 3.7 g/dL (2.4-3.5) H 06/08/18 03:40 Albumin/Globulin Ratio 0.9 (1.1-2.2) L 06/08/18 03:40 Ur Specific [place] < 1.005 (1.010-1.025) L 06/08/18 03:30 Urine Blood Trace (Negative) H 06/08/18 03:30 Ur Leukocyte Esterase Large (Negative) H 06/08/18 03:30 Urine Microscopic RBC 3-5 per hpf (0-3) H 06/08/18 03:30 Urine Microscopic WBC 50-100 per hpf (0-3) H 06/08/18 03:30 Diabetes panel 06/08/18 Range/Units 03:40 Sodium 136 (136-145) mEq/L Potassium 3.6 (3.5-5.1) mEq/L Chloride 102 (98-107) mEq/L Carbon Dioxide 23 (23-29) mEq/L BUN 25 H (6-20) mg/dL Creatinine 1.83 H (0.60-1.20) mg/dL Glucose 104 (70-105) mg/dL Calcium 8.7 (8.6-10.3) mg/dL AST 10 L (13-39) Units/L ALT 11 (7-52) Units/L Alkaline Phosphatase 84 (34-104) Units/L Albumin 3.3 L (3.5-5.7) g/dL Calcium panel 06/08/18 Range/Units 03:40 Calcium 8.7 (8.6-10.3) mg/dL Albumin 3.3 L (3.5-5.7) g/dL Pituitary panel 06/08/18 Range/Units 03:40 Sodium 136 (136-145) mEq/L Potassium 3.6 (3.5-5.1) mEq/L Chloride 102 (98-107) mEq/L Carbon Dioxide 23 (23-29) mEq/L BUN 25 H (6-20) mg/dL Creatinine 1.83 H (0.60-1.20) mg/dL Glucose 104 (70-105) mg/dL Calcium 8.7 (8.6-10.3) mg/dL Adrenal panel 06/08/18 Range/Units 03:40 Sodium 136 (136-145) mEq/L Potassium 3.6 (3.5-5.1) mEq/L Chloride 102 (98-107) mEq/L Carbon Dioxide 23 (23-29) mEq/L BUN 25 H (6-20) mg/dL Creatinine 1.83 H (0.60-1.20) mg/dL Glucose 104 (70-105) mg/dL Calcium 8.7 (8.6-10.3) mg/dL Total Bilirubin 0.4 (0.3-1.0) mg/dL AST 10 L (13-39) Units/L ALT 11 (7-52) Units/L Alkaline Phosphatase 84 (34-104) Units/L Albumin 3.3 L (3.5-5.7) g/dL All other labs normal.
[2018-06-08] MEDS: cefTRIAXone 2,000 MG in Water for inj. (sterile) 20 ML 20 ML IVP SCH (08:12)
[2018-06-08 09:31] LABS: Hematocrit 22.2 % (35.3-44.9)
--- NOTE | 2018-06-08 11:46 | Nephrology Consult Note ---
<Kirstin Hutchison - Last Filed: 06/08/18 11:35> Date of Encounter: 06/08/18 Time of Encounter: 11:35 Assessment and Plan (1) YAEL (acute kidney injury) Status: Acute Scr is 1.83, down from 2.06. Unsure of baseline since recent YAEL. Avoid nephrotoxins and renal dose all medications. Strict I/O. Please place a hat in bathroom. Encouraged adequate PO intake. (2) Acute blood loss anemia Status: Acute Hgb is 7.1. Recommend 1 unit PRBC, but will defer to primary team. (3) Hydronephrosis, right Status: Acute Per urology. History of Present Illness - Reason for Consult Consult date: 06/08/18 Acute Kidney Injury - Chief Complaint UTI/ARF/Anemia - History of Present Illness Ms. Alatorre is a 33 year old female who presented to ED on 06/08/18 with a 3-4 day history of right-sided flank pain with nausea/vomiting/and some diarrhea. She tells me she was not able to keep anything down. She had a fever of 104 at home. She went to ER at [facility] and was then transferred to [facility]. She is 6 weeks was admitted after delivery for YAEL secondary to severe vaginal bleeding and motrin use. She was sent home and then right sided flank symptoms started. The baby is healthy at home with . She has stopped taking Motrin and only takes Tylenol for pain. Of note, patient has a history of opiate dependence and has been on Suboxone for the last 4 years. She denies any tobacco, alcohol, or any street drug use. Her urine drug screen at [place] [facility] was negative. YAEL workup has been started. Retroperitoneal US did show mild to moderate hydro. Recommend supportive care of nausea. Encouraged adequate PO intake. Past Med Surg Social Fam HX - Past Medical History Medical history: renal disease Additional medical history: prescription opiate dependence Psychiatric history: no psych history - Past Surgical History Surgical History: cholecystectomy Additional surgical history: TOP TEETH REMOVED - Social History Smoking Status: Former smoker Smokeless Tobacco Status: No Alcohol use: none Drug use: none - Family History Mother Hx Family Genitourinary Disorders: No Father Hx Family Genitourinary Disorders: No Medications and Allergies Buprenorphine HCl/Naloxone HCl [Buprenorphin-Naloxon 8-2 mg Sl] 2 tab SL DAILY 05/03/18 [History] Omeprazole [PriLOSEC] 20 mg PO DAILY 06/08/18 [History] Ondansetron HCl 8 mg PO BID PRN 06/08/18 [History] Ciprofloxacin [Cipro] 500 mg PO BID 14 Days #28 tablet 06/10/18 [Rx] Levothyroxine [Synthroid] 50 mcg PO 0630 #30 tablet 06/10/18 [Rx] 3 Allergy/AdvReac Type Severity Reaction Status Date / Time No Known Allergies Allergy Verified 06/07/18 19:33 Review of Systems Constitutional: no chills, no fatigue, no fever(s), no lethargy Cardiovascular: no chest pain, no dyspnea, no palpitations Gastrointestinal: no change in bowel habits, no diarrhea, no nausea, no vomiting Genitourinary Female: no dysuria, no hematuria, no urinary frequency Exam - Vital Signs Vital signs: Initial Vital Signs Temp Pulse Resp BP Pulse Ox 98.4 F 102 16 102/60 100 06/07/18 23:10 06/07/18 23:10 06/07/18 23:10 06/07/18 23:10 06/07/18 23:10 Vital Signs - Last 8 Hours Temp Pulse Resp BP Pulse Ox 06/08/18 10:58 100.8 F H 101 15 103/63 96 06/08/18 09:57 98 06/08/18 07:26 99.7 F H 83 16 99/62 98 Intake and Output 06/07/18 06/08/18 06/08/18 23:59 07:59 15:59 Intake Total 20 / 20 Output Total 400 / 400 Balance -400 / -400 20 / 20 Intake: IV Fluids 20 / 20 Rocephin 2,000 MG In Water for 20 / 20 inj. (sterile) 20 ML @ 600 mls/ hr IVP Q24H [facility] Rx#:[id number] Output: Urine 400 / 400 Other: Weight 61.292 kg - General Appearance General appearance: well-developed, well-nourished, appears started age EENT: ATNC, hearing intact, vision intact Neck: supple Respiratory: clear Cardiology: no edema, normal S1, normal S2 Gastrointestinal: normoactive bowel sounds, no tenderness, no guarding Integumentary: no rash, warm and dry Neurologic: alert and oriented x3 Psychiatric: mood/affect appropriate, cooperative Results - Lab Results 06/08/18 09:00 06/08/18 03:40 Most recent lab results Calcium 8.7 mg/dL (8.6-10.3) 06/08/18 03:40 Magnesium 1.8 mg/dL (1.6-2.6) 06/08/18 03:40 Consult Discharge Plan - Plan Referrals: Andree Cardenas, MARY GRACE [Primary Care Provider] - Prescriptions: Ciprofloxacin [Cipro] 500 mg PO BID 14 Days #28 tablet Levothyroxine [Synthroid] 50 mcg PO 629 #30 tablet <Satya Oropezapatricia Young - Last Filed: 06/15/18 02:28> Date of Encounter: 06/08/18 Assessment and Plan (1) YAEL (acute kidney injury) Status: Acute (2) Acute blood loss anemia Status: Acute (3) Hydronephrosis, right Status: Acute Exam - Vital Signs Vital signs: Initial Vital Signs Temp Pulse Resp BP Pulse Ox 98.4 F 102 16 102/60 100 06/07/18 23:10 06/07/18 23:10 06/07/18 23:10 06/07/18 23:10 06/07/18 23:10 Results - Lab Results 06/10/18 11:46 06/10/18 03:54 Most recent lab results Calcium 9.1 mg/dL (8.6-10.3) 06/10/18 03:54 Magnesium 1.8 mg/dL (1.6-2.6) 06/08/18 03:40 Urine Creatinine 41 mg/dL 06/08/18 15:16 Urine Sodium 34.9 mEq/L 06/08/18 15:16 Urine Total Protein 60 mg/dL (1-14) H 06/08/18 15:16 - Attending Attestation I examined this patient and my medical decision-making was reviewed with the Resident Physician/PATHOLOGY TECHNICIAN. I agree with the documented findings, disposition and treatment plan as described except to the extent set forth below. In brief, 33 y o female 6 week admitted with right flank pain along with N/V/D and fever found with elevated SCr. Of note, prior YAEL within the past few weeks noted with NSAIDs now discontinued. SCr already improving but baseline not well-established, continue fluids. Will initiate YAEL workup. CT shows mild to moderate hydroneph with signs suggestive of pyelonephritis. Urology on board. Abx per primary team.
[2018-06-08] MEDS: OXYCODONE Oral CONC 10 MG/0.5 ML ORAL.SYG SL PRN ×3 (12:10→23:16)
--- NOTE | 2018-06-08 13:08 | Event Note ---
Date of Encounter: 06/08/18 Time of Encounter: 13:07 Patient continues to have flank pain. Does have good urine output. No hematuria and this morning. No fevers or chills reported overnight. Discussed with urology and nephrology. Will transfuse 1 unit PRBC for anemia as described be contributing to her continued AK I. We will also workup for other causes and get renal ultrasound. Continue current antibiotics while we await culture results.
[2018-06-08] MEDS ORDERED: 0.9 % Sodium Chloride 250 ML ONE (14:53)
[2018-06-08 15:27] LABS: Hemoglobin 7.1 g/dL (11.5-15.4)
[2018-06-08 16:05] LABS: Hepatitis A Antibody IgM Nonreactive (Nonreactive); Hepatitis B Core IgM Nonreactive (Nonreactive); Hepatitis B Surface Antigen Nonreactive (Nonreactive); Hepatitis C Virus Antibody Nonreactive (Nonreactive)
[2018-06-08 16:46] LABS: Protein/Creatinine Ratio,Urine 1.46 mg/mg (0.00-0.20)
--- NOTE | 2018-06-08 17:14 | Electrocardiograph Report ---
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
[2018-06-09] MEDS: Acetaminophen 325 MG TABLET PO PRN ×2 (01:03→12:04)
[2018-06-09 05:04] LABS: Basophils % 0.3 %; Eosinophils # 0.1 K/mcL (0.0-0.6); Eosinophils % 0.8 %; Hematocrit 25.5 % (35.3-44.9); Hemoglobin 8.1 g/dL (11.5-15.4); Immature Granulocytes % 0.6 % (0-4); Lymphocytes # 2.3 K/mcL (0.6-4.6); Lymphocytes % 29.6 %; Mean Corpuscular HGB Conc 31.8 g/dL (31.6-35.5); Mean Corpuscular Hemoglobin 28.2 pg (28.0-33.3); Mean Corpuscular Volume 88.9 fL (83.0-100.0); Mean Platelet Volume 10.1 fL (9.4-12.4); Monocytes # 0.9 K/mcL (0.0-1.3); Monocytes % 11.7 %; Neutrophils # 4.4 K/mcL (1.6-8.9); Platelet Count 208 K/mcL (140-400); Red Blood Count 2.87 M/mcL (3.82-4.97); Red Cell Distribution Width 13.8 % (11.5-14.5)
[2018-06-09 05:21] LABS: Potassium 4.1 mEq/L (3.5-5.1)
[2018-06-09] MEDS: cefTRIAXone 2,000 MG in Water for inj. (sterile) 20 ML 20 ML IVP SCH (08:02)
[2018-06-09] MEDS: OXYCODONE Oral CONC 10 MG/0.5 ML ORAL.SYG SL PRN ×3 (08:03→22:16)
--- NOTE | 2018-06-09 08:03 | Urology Progress Note ---
Date of Encounter: 06/09/18 Time of Encounter: 07:59 - Assessment and Plan (1) Hydronephrosis, right Current Visit: Yes Status: Acute Assessment and plan: Patient is a 33-year-old female who presents with right hydronephrosis and decreased renal function. BUN and creatinine have improved but are still elevated. Vital signs are currently stable and afebrile. MAXIMUM TEMPERATURE overnight was 100.1. White blood cell count is reassuring. Discussed risks and benefits of cystoscopy and bilateral ureteral stent placement. Patient verbalized understanding, and consent has been signed. Patient will remain nothing by mouth after 11 AM. (2) Acute pyelonephritis Current Visit: Yes Status: Inactive Assessment and plan: Patient is a 33-year-old female who presents with acute pyelonephritis. Patient has been placed on IV Rocephin with clinical improvement, however, she has not been 24 hours afebrile. Urine culture shows gram-negative rods, but final sensitivity report is pending. Blood cultures are pending as well. Progress Note Subjective: no new complaints, still having pain, tolerating a regular diet Narrative: Patient seen and examined sitting upright in bed in no apparent distress. Patient states flank pain is persistent. Patient is voiding without difficulty. Patient admits to intermittent fever, chills, diaphoresis. Patient denies gross hematuria. Objective Initial Vital Signs Temp Pulse Resp BP Pulse Ox 98.4 F 102 16 102/60 100 06/07/18 23:10 06/07/18 23:10 06/07/18 23:10 06/07/18 23:10 06/07/18 23:10 - General physical appearance Present: well developed, no distress, moderate pain - Respiratory Present: normal expansion, normal respiratory effort - Abdomen Present: soft, tender (suprapubic ). Absent: distended - Integumentary Present: no rash, no abnormal pigmentation - Musculoskeletal Present: normal posture - Psychiatric Present: oriented to time, oriented to person, oriented to place, speech is normal, memory intact - Labs 06/09/18 04:36 06/09/18 04:36 Diabetes panel 06/08/18 06/09/18 Range/Units 03:40 04:36 Sodium 136 142 (136-145) mEq/L Potassium 3.6 4.1 (3.5-5.1) mEq/L Chloride 102 107 (98-107) mEq/L Carbon Dioxide 23 27 (23-29) mEq/L BUN 25 H 19 (6-20) mg/dL Creatinine 1.83 H 1.53 H (0.60-1.20) mg/dL Glucose 104 108 H (70-105) mg/dL Calcium 8.7 9.0 (8.6-10.3) mg/dL AST 10 L (13-39) Units/L ALT 11 (7-52) Units/L Alkaline Phosphatase 84 (34-104) Units/L Albumin 3.3 L (3.5-5.7) g/dL Calcium panel 06/08/18 06/09/18 Range/Units 03:40 04:36 Calcium 8.7 9.0 (8.6-10.3) mg/dL Albumin 3.3 L (3.5-5.7) g/dL Pituitary panel 06/08/18 06/09/18 Range/Units 03:40 04:36 Sodium 136 142 (136-145) mEq/L Potassium 3.6 4.1 (3.5-5.1) mEq/L Chloride 102 107 (98-107) mEq/L Carbon Dioxide 23 27 (23-29) mEq/L BUN 25 H 19 (6-20) mg/dL Creatinine 1.83 H 1.53 H (0.60-1.20) mg/dL Glucose 104 108 H (70-105) mg/dL Calcium 8.7 9.0 (8.6-10.3) mg/dL Adrenal panel 06/08/18 06/09/18 Range/Units 03:40 04:36 Sodium 136 142 (136-145) mEq/L Potassium 3.6 4.1 (3.5-5.1) mEq/L Chloride 102 107 (98-107) mEq/L Carbon Dioxide 23 27 (23-29) mEq/L BUN 25 H 19 (6-20) mg/dL Creatinine 1.83 H 1.53 H (0.60-1.20) mg/dL Glucose 104 108 H (70-105) mg/dL Calcium 8.7 9.0 (8.6-10.3) mg/dL Total Bilirubin 0.4 (0.3-1.0) mg/dL AST 10 L (13-39) Units/L ALT 11 (7-52) Units/L Alkaline Phosphatase 84 (34-104) Units/L Albumin 3.3 L (3.5-5.7) g/dL Consult Discharge Plan - Plan Referrals: Andree Cardenas, MARY GRACE [Primary Care Provider] -
--- NOTE | 2018-06-09 12:07 | Nephrology Progress Note ---
Date of Encounter: 06/09/18 Time of Encounter: 12:05 - Assessment and Plan (1) YAEL (acute kidney injury) Current Visit: Yes Status: Acute Scr is improved at 1.35. Unsure of baseline since recent YAEL. Avoid nephrotoxins and renal dose all medications. Strict I/O. (2) Acute blood loss anemia Current Visit: Yes Status: Acute 1 Unit PRBC'S transfused yesterday. Hgb is 8.1 today. (3) Hydronephrosis, right Current Visit: Yes Status: Acute Per urology. Subjective Principal diagnosis: UTI/ARF Interval history: Pt seen and examined. Doing well. Still c/o of right flank pain. Is NPO for cystoscopy. Objective - Vital Signs Vital signs: Vital Signs Temp Pulse Resp BP Pulse Ox 06/09/18 10:59 98.7 F 57 20 116/73 97 06/09/18 07:15 97.9 F 63 20 123/78 100 06/09/18 00:46 100.1 F H 86 17 115/73 97 06/08/18 21:50 99.1 F 90 18 114/70 99 06/08/18 19:54 93 06/08/18 17:38 99.3 F 92 16 104/64 93 06/08/18 16:50 99.6 F 91 16 94/56 97 06/08/18 15:07 100.2 F H 99 16 113/69 99 06/08/18 15:01 101 F H 101 16 119/74 96 Intake and Output 06/08/18 06/09/18 06/09/18 23:59 07:59 15:59 Intake Total 305 / 305 1020 / 1020 Balance 305 / 305 1020 / 1020 Intake: IV Fluids 1020 / 1020 Rocephin 2,000 MG In Water for 20 inj. (sterile) 20 ML @ 600 mls/ hr IVP Q24H [facility] Rx#:[id number] Blood Product 305 / 305 Rbcs Leuko Poor As-1 Unit / 305 [id number] - General Appearance General appearance: Present: well-developed, well-nourished EENT: Present: ATNC, hearing intact, vision intact Neck: Present: supple Respiratory: Present: clear Cardiology: Present: no edema, normal S1, normal S2 Gastrointestinal: Present: normoactive bowel sounds, no tenderness, no guarding Integumentary: Present: no rash, warm and dry Neurologic: Present: alert and oriented x3 Psychiatric: Present: mood/affect appropriate, cooperative - Lab 06/09/18 04:36 06/09/18 04:36 Most recent lab results Calcium 9.0 mg/dL (8.6-10.3) 06/09/18 04:36 Magnesium 1.8 mg/dL (1.6-2.6) 06/08/18 03:40 Urine Creatinine 41 mg/dL 06/08/18 15:16 Urine Sodium 34.9 mEq/L 06/08/18 15:16 Urine Total Protein 60 mg/dL (1-14) H 06/08/18 15:16 Consult Discharge Plan - Plan Referrals: Andree Cardenas, [employer]LE[employer] OPERATOR [Primary Care Provider] -
[2018-06-09 12:26] LABS: Hemoglobin 8.3 g/dL (11.5-15.4)
[2018-06-09] MEDS ORDERED: Famotidine 20 MG/2 ML VIAL IVP ONE ×2 (16:35→18:09)
[2018-06-09] MEDS ORDERED: Acetaminophen IV 1,000 MG/100 ML INFUS..BTL IVPB ONE ×2 (16:36→18:09)
[2018-06-09] MEDS ORDERED: 0.9 % Sodium Chloride 1,000 ML IVC SCH ×2 (16:45→18:09)
[2018-06-09] MEDS ORDERED: Acetaminophen IV 1,000 MG/100 ML INFUS..BTL ONE (16:45)
[2018-06-09] MEDS ORDERED: Famotidine 20 MG/2 ML VIAL ONE (16:45)
--- NOTE | 2018-06-09 16:54 | Anesthesia Evaluation PreOp ---
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 Any Significant HX Other Medical History: Renal (Acute Renal Disease) Anesthesia History: No Prior Anesthetic Complications : No Test: Negative Alcohol Use: none Drug use: none, opiates (on Suboxone) Medications and Allergies Buprenorphine HCl/Naloxone HCl [Buprenorphin-Naloxon 8-2 mg Sl] 2 tab SL DAILY 05/03/18 [History] Omeprazole [PriLOSEC] 20 mg PO DAILY 06/08/18 [History] Ondansetron HCl 8 mg PO BID PRN 06/08/18 [History] 3 Allergy/AdvReac Type Severity Reaction Status Date / Time No Known Allergies Allergy Verified 06/07/18 19:33 - Meds/Allergy Pre-op Review Medications Reviewed: Yes Allergies Reviewed: Yes Beta Blockers on Current Med List: No Anesthesia Results - Labs 06/09/18 12:10 06/09/18 04:36 - Imaging EKG: report reviewed (Sinus Tach Short AL occ Supraventricular Complex) Anesthesia Exam O2 Sat O2 Sat by Pulse Oximetry 98 O2 Sat by Pulse Oximetry 97 O2 Sat by Pulse Oximetry 100 O2 Sat by Pulse Oximetry 97 O2 Sat by Pulse Oximetry 99 O2 Sat by Pulse Oximetry 93 O2 Sat by Pulse Oximetry 93 Vital Signs Temp Pulse Resp BP Pulse Ox 98.4 F 102 16 102/60 100 06/07/18 23:10 06/07/18 23:10 06/07/18 23:10 06/07/18 23:10 06/07/18 23:10 Height: 5'4 Weight: 135 lbs NPO (# of Hours): [place] Pain Scale: 0 - HEENT Pupil (Motor): Pupils equal, EOMI Mallampati: II Teeth: Edentulous (no upper dentition) Oral Opening: Greater than 3 - RAILROAD CRANE OPERATOR LOC: Oriented RAILROAD CRANE OPERATOR Motor: Normal RUE, Normal LUE, Normal RLE, Normal LLE, Normal Face RAILROAD CRANE OPERATOR Sensory: Normal: RUE, LUE, RLE, LLE, Face - Cardiac Rhythm: Regular Murmur: None JVD: No Carotid Bruit: No - Pulmonary Breath Sounds: bilateral Clear Respiratory Effort: Symmetrical Anesthesia Assess/Plan ASA Score: 2 Modified [place] Scale for Level of Consciousness: Cooperative, oriented, and tranquil Anesthetic Plan: General Monitoring Plan: Standard Monitors Recovery Plan: PACU (Discussed GA, agrees to proceed)
[2018-06-09] MEDS ORDERED: Isovue-300 50 ML VIAL IVP ONE (17:16)
[2018-06-09] MEDS ORDERED: *HR* FentaNYL (PF) 100 MCG/2 ML VIAL ONE (17:27)
[2018-06-09] MEDS ORDERED: Ondansetron 4 MG/2 ML VIAL ONE (17:27)
[2018-06-09] MEDS ORDERED: Dexamethasone 4 MG/ML VIAL ONE (17:27)
[2018-06-09] MEDS ORDERED: *HR* Propofol 200 MG/20 ML VIAL IVP ONE (17:27)
[2018-06-09] MEDS ORDERED: Lidocaine -MPF 2% 2 ML VIAL ONE (17:27)
[2018-06-09] MEDS ORDERED: *HR* Promethazine 25 MG/ML VIAL IVP PRN ×2 (17:29→18:09)
[2018-06-09] MEDS ORDERED: Ondansetron 4 MG/2 ML VIAL IVP ONE ×2 (17:29→18:09)
--- NOTE | 2018-06-09 17:36 | Operative Note ---
Date of procedure: 06/09/18 Pre-op diagnosis: bilateral hydronephrosis. renal insufficiency. fever Post-op diagnosis: same Procedure: cystoscopy. bilateral retrograde pyelogram. bilateral JJ stents Anesthesia: GETA Surgeon: Joe Glaser Was there an speech and language assistant present: No Estimated blood loss (cc): 0 Specimen: none Condition: stable Disposition: PACU Procedure in Detail: . PROCEDURE IN DETAIL: Patient was taken back to the operating room, positioned supine on the operating table. Anesthesia was applied without complication. They were moved into dorsal lithotomy. Careful attention was maintained to cushion all pressure points for patient's safety. They were prepped and draped in sterile fashion. Time-out was performed with the proper patient and procedure. A 21-Australian rigid cystoscope was inserted into the bladder without difficulty. Systematic examination of bladder revealed no abnormalities except the left ureteral orifice appeared similar to a "golf hole" oriface and concerning for reflux. I used the 5 Australian ureteral catheter and injected dye towards the orifice which clearly showed reflux into the distal portion of the ureter. I then cannulated the ureteral orifice and the patient had mild hydroureter and hydronephrosis. A 4.8 x 26 ureteral stent was placed. The string was removed. The right ureteral orifice appeared more normal. It was cannulated using a 5 Australian ureteral catheter. Retrograde pyelogram revealed a fairly normal caliber ureter but there was more significant right hydronephrosis. There is no significant transition point or obvious source of the hydronephrosis. A 4.8 x 26 stent was placed. The string was removed. The bladder was drained.
[2018-06-09] MEDS ORDERED: *HR* HYDROmorphone (PF) 1 MG/ML SYRINGE IVP PRN (17:43)
[2018-06-09] MEDS ORDERED: *HR* HYDROmorphone (PF) 1 MG/ML SYRINGE ONE (17:44)
[2018-06-09] MEDS ORDERED: Ondansetron 4 MG/2 ML VIAL IVP PRN (18:09)
[2018-06-09] MEDS ORDERED: Naloxone 0.4 MG/ML INJ IVP PRN (18:09)
--- NOTE | 2018-06-09 18:14 | Anesthesia Evaluation Post Op ---
Date of Encounter: 06/09/18 Time of Encounter: 18:15 - Vital Signs Vital Signs: Vital Signs/O2 Sat/Glucose, Most Current Temp Pulse Resp BP Pulse Ox 06/09/18 18:07 97.7 F 56 16 139/78 97 06/09/18 17:57 57 14 129/61 96 06/09/18 17:47 51 14 142/81 96 06/09/18 17:37 97.3 F L 64 20 126/89 100 06/09/18 16:15 98.5 F 52 20 119/55 98 - Lungs Lungs: Clear Ascult./Percussion - Airway Airway: Non-obstructed - Cardiovascular Regular Rate - Mental Status Mental Status: Alert & Oriented, Answers Appropriately - Pain Pain Scale: 1 - Nausea Vomiting Nausea Vomiting: Not Present - Hydration Hydration: Ice chips - Discharge PostOp Status: Transfer Patient to floor
--- NOTE | 2018-06-09 19:40 | Internal Med Progress Note ---
Hospitalist Progress Note - Encounter Date of Encounter: 06/09/18 Time of Encounter: 11:00 - Subjective Interval History: Patient presented with right flank pain and fevers found to have acute pyelonephritis with right hydronephrosis. Patient scheduled for cystoscopy per urology recommendations later today. Patient's hemoglobin has improved/stable status post 1 unit of packed red blood cells. - Exam Vitals: Temp Pulse Resp BP Pulse Ox 97.8 F 67 14 131/70 98 06/09/18 19:29 06/09/18 19:29 06/09/18 19:29 06/09/18 19:29 06/09/18 19:29 Exam: Gen.: Nonacute distress, alert and oriented 3 ENT: Mucosal membranes moist Respiratory: Lungs are clear to auscultation bilaterally without any wheezing rhonchi or rales Cardiovascular: Normal S1 and S2 regular rate rhythm no murmurs rubs or gallops Abdomen: Soft, nontender and nondistended with positive bowel sounds Extremities: No lower extremity edema Skin: Normal color - Assessment and Plan (1) Acute pyelonephritis Current Visit: Yes Status: Inactive Assessment and Plan: Patient with MAXIMUM TEMPERATURE of 100.1 overnight but without leukocytosis Continue IV ceftriaxone (2) Hydronephrosis, right Current Visit: Yes Status: Acute Assessment and Plan: Patient scheduled today for cystoscopy for bilateral stents per urology recommendation (3) YAEL (acute kidney injury) Current Visit: Yes Status: Acute Assessment and Plan: Renal function improving with IV fluids Continue current management (4) Acute blood loss anemia Current Visit: Yes Status: Acute Assessment and Plan: Hemoglobin has improved status post 1 unit packed red blood cells Continue to monitor H&H (5) DVT prophylaxis Current Visit: Yes Status: Acute Assessment and Plan: SCDs - Time Spent with Patient Total time spent is greater than 50% in coordination of care (as documented) at patient's floor/unit and/or counseling patient: Internal Medicine: Result - Labs CBC & Chem 7: 06/10/18 03:54 06/10/18 03:54 Labs: Short CBC 06/09/18 06/09/18 Range/Units 04:36 12:10 WBC 7.7 (4.3-11.1) K/mcL Hgb 8.1 L 8.3 L (11.5-15.4) g/dL Hct 25.5 L 26.0 L (35.3-44.9) % Plt Count 208 (140-400) K/mcL Neutrophils # 4.4 (1.6-8.9) K/mcL BMP 06/09/18 04:36 Sodium 142 Potassium 4.1 Chloride 107 Carbon Dioxide 27 BUN 19 Creatinine 1.53 H Glucose 108 H Calcium 9.0 - ABG Interpretation ABG results: PT/INR, D-dimer PT 18.0 Seconds (9.4-12.1) H 06/08/18 03:40 - Impressions Impressions Retrograde Pyelogram 06/09/18 00:00 IMPRESSION: Moderate pelvicaliectasis on the right no structure in mass or calculus identified. Bilateral ureteral stents placed. D/ : / 06/09/2018 17:56:15 Rajesh Thomas MD / [email or web address] Interpreting Provider: Rajesh Thomas MD Consult Discharge Plan - Plan Referrals: Andree Cardenas, BRIM BUSTER [Primary Care Provider] -
[2018-06-09 20:08] LABS: Hematocrit 26.6 % (35.3-44.9); Hemoglobin 8.4 g/dL (11.5-15.4)
[2018-06-10] MEDS: Acetaminophen 325 MG TABLET PO PRN ×3 (00:19→17:18)
[2018-06-10 04:34] LABS: Hematocrit 25.1 % (35.3-44.9)
--- NOTE | 2018-06-10 04:42 | Event Note ---
<Solitario Michaud - Last Filed: 06/10/18 05:47> Date of Encounter: 06/10/18 Time of Encounter: 04:37 I was informed by nurse that patient that patient was bradycardic in the high 30s. He stated that she had been bradycardic in the 40s during the day and had been asymptomatic. On exam the patient continues to be asymptomatic, only complaining of pelvic pain from lithotomy earlier in the day. EKG x 3 was obtained which revealed a bradycardic rate interchanging between AFib slow ventricular response and sinus bradycardia with ectopic beats. Pre-anesthetic note yesterday indicated pulse of 102 and there is no previous history of bradycardia or arrythmia. On auscultation heart was without murmur or gallop. Patient denied chest pain or shortness of breath and was alert and oriented x3, sitting in bed and watching TV. Patient otherwise hemodynamically stable. This is likely a side effect of pain medication and anesthesia. Intervention is not indicated at this time, we will continue to closely monitor the patient. <Florinda Cai - Last Filed: 06/10/18 05:59> Date of Encounter: 06/10/18 I was notified of these events. Apparently the bradycardic episodes started right after her procedure earlier in the day and this seems to be a recurrence. In the absence of clinical and hemodynamic signs of decompensation, no intervention is advised at this time. Will inform primary provider this morning.
[2018-06-10] MEDS: OXYCODONE Oral CONC 10 MG/0.5 ML ORAL.SYG SL PRN ×4 (04:45→18:45)
[2018-06-10 05:00] LABS: BUN/Creatinine Ratio 17 (6-26); Blood Urea Nitrogen 20 mg/dL (6-20); Calcium 9.1 mg/dL (8.6-10.3); Carbon Dioxide 25 mEq/L (23-29); Chloride 105 mEq/L (98-107); Glucose 129 mg/dL (70-105); Osmolality,Calculated 294 (280-300); Potassium 4.4 mEq/L (3.5-5.1); Sodium 140 mEq/L (136-145); eGFR For Non-African Americans 51 (> 60)
--- NOTE | 2018-06-10 08:26 | Urology Progress Note ---
Date of Encounter: 06/10/18 Time of Encounter: 07:40 - Assessment and Plan (1) Hydronephrosis, right Current Visit: Yes Status: Acute Assessment and plan: Patient is a 33-year-old female who is one day status post cystoscopy, bilateral retrograde pyelogram, bilateral JJ stent placement for bilateral hydronephrosis, renal insufficiency, and fever. Patient is feeling well and has remained afebrile for greater than 24 hours. Vital signs are currently stable and afebrile. White blood cell count is reassuring. I reviewed operative findings of left ureterovesicular reflux and right ureteral obstruction with more significant hydronephrosis. I explained postoperative expectations of ureteral stents. Patient is aware she will have ureteral stents in place for a minimum of several weeks. Progress Note Subjective: no new complaints Narrative: POD #1. Patient seen and examined eating breakfast upright in bed in no apparent distress. Patient states she is tolerating a normal diet, and she is voiding without difficulty. Patient admits to some left flank pain and suprapubic discomfort. Patient denies gross hematuria, fever, chills. Objective Initial Vital Signs Temp Pulse Resp BP Pulse Ox 98.4 F 102 16 102/60 100 06/07/18 23:10 06/07/18 23:10 06/07/18 23:10 06/07/18 23:10 06/07/18 23:10 - General physical appearance Present: well developed, well nourished, no distress, no pain - Respiratory Present: normal expansion, normal respiratory effort - Abdomen Present: soft, tender (left cvat, suprapubic ) - Genitourinary Urine Appearance: Present: Clear - Integumentary Present: no rash, no abnormal pigmentation - Musculoskeletal Present: normal posture - Psychiatric Present: oriented to time, oriented to person, oriented to place, speech is normal, memory intact - Labs 06/10/18 03:54 06/10/18 03:54 Diabetes panel 06/10/18 Range/Units 03:54 Sodium 140 (136-145) mEq/L Potassium 4.4 (3.5-5.1) mEq/L Chloride 105 (98-107) mEq/L Carbon Dioxide 25 (23-29) mEq/L BUN 20 (6-20) mg/dL Creatinine 1.20 (0.60-1.20) mg/dL Glucose 129 H (70-105) mg/dL Calcium 9.1 (8.6-10.3) mg/dL Calcium panel 06/10/18 Range/Units 03:54 Calcium 9.1 (8.6-10.3) mg/dL Pituitary panel 06/10/18 Range/Units 03:54 Sodium 140 (136-145) mEq/L Potassium 4.4 (3.5-5.1) mEq/L Chloride 105 (98-107) mEq/L Carbon Dioxide 25 (23-29) mEq/L BUN 20 (6-20) mg/dL Creatinine 1.20 (0.60-1.20) mg/dL Glucose 129 H (70-105) mg/dL Calcium 9.1 (8.6-10.3) mg/dL Adrenal panel 06/10/18 Range/Units 03:54 Sodium 140 (136-145) mEq/L Potassium 4.4 (3.5-5.1) mEq/L Chloride 105 (98-107) mEq/L Carbon Dioxide 25 (23-29) mEq/L BUN 20 (6-20) mg/dL Creatinine 1.20 (0.60-1.20) mg/dL Glucose 129 H (70-105) mg/dL Calcium 9.1 (8.6-10.3) mg/dL Consult Discharge Plan - Plan Referrals: Andree Cardenas, ENVIRONMENTAL PROTECTION GEOLOGIST [Primary Care Provider] -
[2018-06-10] MEDS ORDERED: cefTRIAXone 2,000 MG in Water for inj. (sterile) 20 ML 20 ML IVP SCH (09:00)
[2018-06-10 09:20] LABS: Basophils % 0.5 %; Immature Granulocytes % 1.1 % (0-4); Lymphocytes # 1.2 K/mcL (0.6-4.6); Lymphocytes % 27.4 %; Mean Corpuscular HGB Conc 32.5 g/dL (31.6-35.5); Mean Corpuscular Hemoglobin 29.4 pg (28.0-33.3); Mean Corpuscular Volume 90.4 fL (83.0-100.0); Mean Platelet Volume 10.8 fL (9.4-12.4); Monocytes # 0.3 K/mcL (0.0-1.3); Monocytes % 5.9 %; Neutrophils # 2.9 K/mcL (1.6-8.9); Platelet Count 277 K/mcL (140-400); Red Blood Count 2.82 M/mcL (3.82-4.97); Red Cell Distribution Width 13.5 % (11.5-14.5); Segmented Neutrophils % 65.1 %
--- NOTE | 2018-06-10 10:04 | Nephrology Progress Note ---
Date of Encounter: 06/10/18 Time of Encounter: 10:02 - Assessment and Plan (1) YAEL (acute kidney injury) Current Visit: Yes Status: Acute Scr is improved at 1.2 and GFR is greater than 60. Avoid nephrotoxins and renal dose all medications. Strict I/O. BMP in 7 days and f/u with [facility] on June. We will sign off, please re-consult as needed. (2) Acute blood loss anemia Current Visit: Yes Status: Acute Hgb is 8 today, stable. (3) Hydronephrosis, right Current Visit: Yes Status: Acute Per urology. Subjective Principal diagnosis: UTI/ARF Interval history: Pt seen and examined. Doing well. Still c/o of right flank pain. Is feeling a little better today. Objective - Vital Signs Vital signs: Vital Signs Temp Pulse Resp BP Pulse Ox 06/10/18 09:04 98.2 F 42 18 190/80 98 06/10/18 05:25 97.7 F 36 14 165/67 98 06/09/18 23:38 97.6 F 68 14 105/71 98 06/09/18 21:09 98 06/09/18 19:29 97.8 F 67 14 131/70 98 06/09/18 18:39 97.8 F 58 16 128/55 99 06/09/18 18:07 97.7 F 56 16 139/78 97 06/09/18 17:57 57 14 129/61 96 06/09/18 17:47 51 14 142/81 96 06/09/18 17:37 97.3 F L 64 20 126/89 100 06/09/18 16:15 98.5 F 52 20 119/55 98 06/09/18 10:59 98.7 F 57 20 116/73 97 Intake and Output 06/09/18 06/10/18 06/10/18 23:59 07:59 15:59 Intake Total 640 / 640 Output Total Balance 615 / 615 Intake: Oral 640 / 640 Output: Urine 25 / 25 Estimated Blood Loss 0 / 0 Other: # Voids 3 Weight 62.596 kg - General Appearance General appearance: Present: well-developed, well-nourished EENT: Present: ATNC, hearing intact, vision intact Neck: Present: supple Respiratory: Present: clear Cardiology: Present: no edema, normal S1, normal S2 Gastrointestinal: Present: normoactive bowel sounds, no tenderness, no guarding Integumentary: Present: no rash, warm and dry Neurologic: Present: alert and oriented x3 Psychiatric: Present: mood/affect appropriate, cooperative - Lab 06/10/18 11:46 06/10/18 03:54 Most recent lab results Calcium 9.1 mg/dL (8.6-10.3) 06/10/18 03:54 Magnesium 1.8 mg/dL (1.6-2.6) 06/08/18 03:40 Urine Creatinine 41 mg/dL 06/08/18 15:16 Urine Sodium 34.9 mEq/L 06/08/18 15:16 Urine Total Protein 60 mg/dL (1-14) H 06/08/18 15:16 Consult Discharge Plan - Plan Referrals: Andree Cardenas, [employer] [Primary Care Provider] -
[2018-06-10 12:23] LABS: Hemoglobin 8.7 g/dL (11.5-15.4)
--- NOTE | 2018-06-10 13:36 | Cardiology Consult Note ---
Date of Encounter: 06/10/18 Time of Encounter: 13:32 Assessment and Plan (1) Sinus bradycardia Current Visit: Yes Status: Acute Per cardiology: -SB with PACs noted on ECG and telemetry. -Average HR previous 12 hours noted to be 51, SB. OF note, mostly nocturnal. -TTE with LVEF preserved, mild PH, no segmental wall motion abnormalities noted. -K, MG within normal limits. -Denies dizziness, lightheadedness, syncope, or near syncope. -Will check TSH. (2) Chest tightness Current Visit: Yes Status: Chronic Per cardiology: -Reports chest tightness after eating. States feels like her heartburn symptoms. -Denies exertional chest pain/tightness. -ECG with no ischemic changes. -TTE as above with LVEF preserved. -No risk factors for CAD. -Chest pain atypical, possible GERD. Discussion w patient/family: The assessment and plan as outlined above was discussed with the patient who expressed understanding and agreement. All questions were answered. Thank you for involving us in the care of your patient. Please call with any questions. Discussed and reviewed with . History of Present Illness Consult date: 06/10/18 Requesting physician: Syed Raman Consult reason: bradycardia Chief complaint: abdominal pain History of present illness: Ms. Alatorre is a 33 year old female with a relevant past medical history of opiate abuse currently on suboxone, 7 weeks post who presented to [facility] with complaints of abdominal pain. Cardiology has been consulted for bradycardia. Patient denies current dizziness, lightheadedness, near syncope, or syncope. Patient reports occasional lightheadedness at home with fast position change. Patient reports some chest tightness after eating. Denies exertional symptoms. Reports some dyspnea on exertion. Patient is awake, alert, and oriented and walking around room. Past Med Surg Social Fam HX - Past Medical History Attestation: Yes The following information was validated with the patient. Source: patient, old records reviewed Medical history: renal disease Additional medical history: prescription opiate dependence Psychiatric history: no psych history - Past Surgical History Surgical History: cholecystectomy Additional surgical history: TOP TEETH REMOVED - Social History Smoking Status: Former smoker Smokeless Tobacco Status: No Alcohol use: none Drug use: none, opiates (on Suboxone) - Family History Mother Hx Family Genitourinary Disorders: No Father Hx Family Genitourinary Disorders: No Medications and Allergies Buprenorphine HCl/Naloxone HCl [Buprenorphin-Naloxon 8-2 mg Sl] 2 tab SL DAILY 05/03/18 [History] Omeprazole [PriLOSEC] 20 mg PO DAILY 06/08/18 [History] Ondansetron HCl 8 mg PO BID PRN 06/08/18 [History] 3 Allergy/AdvReac Type Severity Reaction Status Date / Time No Known Allergies Allergy Verified 06/07/18 19:33 All Systems Review: The remainder of the systems were reviewed and are negative - Cardiovascular Cardiovascular: as per HPI - Gastrointestinal Gastrointestinal: abdominal pain Physical Examination Vital Signs, Last 4 Hours Temp Pulse Resp BP Pulse Ox 06/10/18 10:58 98.3 F 38 18 163/84 98 General: Conversant, No Apparent Distress HEENT: Atraumatic, Normocephaly, Mucus Membranes Moist Neck: No JVD, Normal carotid pulses Cardiac: Reg Rate and Rhythm, Normal S1 and S2, No Murmur Lungs: Normal Breath Sounds, No Wheeze, Rales, Rhonchi Neuro: Alert and responsive, No focal deficits noted Abdomen: Soft, Non-Tender Skin: No rashes noted on visualized skin Musculoskeletal: No Chest Wall Tenderness Extremities: No Clubbing, No Cyanosis, No Edema, Normal Pulses Results 06/10/18 11:46 06/10/18 03:54 Lab Results Impressions Retrograde Pyelogram 06/09/18 00:00 IMPRESSION: Moderate pelvicaliectasis on the right no structure in mass or calculus identified. Bilateral ureteral stents placed. D/ / 06/09/2018 17:56:15 Rajesh Thomas MD / [email or web address] Interpreting Provider: Rajesh Thomas MD Echocardiogram 06/10/18 11:09 Impressions: LVEF 60%. Normal LV chamber size, wall thickness and function. Normal right ventricular structure and function. No significant valvular dysfunction. Mild pulmonary hypertension. Left Ventricular Wall Motion: Rest Echo Findings All wall segments showed normal motion. Findings: Study Quality * Technically adequate exam. ECG Findings * Sinus bradycardia. * Sinus rhythm with PACs. Left Ventricle * LVEF 60%. * Normal LV chamber size, wall thickness and function. * Normal left ventricular diastolic function. Right Ventricle * Normal right ventricular structure and function. Left Atrium * Normal left atrial size. Right Atrium * Normal right atrial size. Interatrial Septum * Interatrial septum not well evaluated. Aortic Valve * Trileaflet aortic valve. * Trileaflet aortic valve with normal function. * No aortic regurgitation. * No aortic stenosis. Tricuspid Valve * Normal tricuspid valve structure and function. * Trace tricuspid regurgitation. * Estimated RVSP is 39 mmHg. * Estimated RA pressure is 10 mmHg. * Mild pulmonary hypertension. Mitral Valve * Normal mitral valve structure. * Trace mitral regurgitation. Pulmonic Valve * Pulmonic valve is not well visualized. * Trace pulmonic regurgitation. Aorta * Normally sized aortic root. Pericardium * The pericardium appears normal. IVC * Normal IVC dimensions and inspiratory collapse. Active Medications Acetaminophen (Tylenol) 650 mg PO Q6HR PRN PRN Reason: Mild Pain/Fever Stop: 12/08/18 03:02 Last Admin: 06/10/18 09:37 Dose: 650 mg Sodium Chloride (0.9 % Sodium Chloride) 1,000 mls @ 25 mls/hr IVC .Q24H JACKIE Stop: 12/09/18 16:46 Ceftriaxone Sodium 2,000 mg/ (Sterile Water) 20 mls @ 600 mls/hr IVP Q24H JACKIE Stop: 12/08/18 09:01 Last Infusion: 06/10/18 10:33 Dose: Infused Naloxone HCl (Narcan) 0.4 mg IVP Q2MIN PRN PRN Reason: SEE COMMENTS Stop: 12/08/18 03:02 Omeprazole (Prilosec) 20 mg PO DAILY JACKIE PRN Reason: Protocol Stop: 12/09/18 09:01 Last Admin: 06/10/18 09:37 Dose: 20 mg Ondansetron HCl (Zofran) 4 mg IVP Q6HR PRN; Protocol PRN Reason: Nausea Stop: 12/08/18 03:02 Oxycodone HCl (Oxycodone Oral Conc) 10 mg SL Q6HR PRN; Protocol PRN Reason: Severe Pain Stop: 12/08/18 08:39 Last Admin: 06/10/18 06:16 Dose: 10 mg Oxycodone HCl (Oxycodone Oral Conc) 5 mg SL Q6HR PRN; Protocol PRN Reason: Moderate Pain Stop: 12/08/18 08:39 Last Admin: 06/10/18 12:09 Dose: 5 mg Laboratory Tests 06/08/18 06/08/18 06/10/18 03:40 03:40 03:54 Hgb 7.1 L 8.0 L Potassium Creatinine 1.83 H Magnesium 1.8 06/10/18 03:54 Hgb Potassium 4.4 Creatinine 1.20 Magnesium - Imaging and Cardiology Chest Xray: report reviewed Echo: report reviewed - EKG Interpretation EKG results cardiology: personally reviewed (ECG with SB, HR 42. PACs noted.), other (Telemetry reviewed with average HR previous 12 hours noted to be 51, SB. PACS noted.) Consult Discharge Plan - Plan Referrals: Andree Cardenas, FOOD SERVICE DRIVER [Primary Care Provider] -
[2018-06-10 14:03] LABS: Thyroid Stimulating Hormone 0.248 mcIU/mL (0.340-5.600)
--- NOTE | 2018-06-10 17:29 | Urology Progress Note ---
Date of Encounter: 06/10/18 Time of Encounter: 17:27 - Assessment and Plan (1) Hydronephrosis Current Visit: Yes Status: Resolved Assessment and plan: Bilateral stents placed. Clinical improvement but having some stent discomfort which is expected. I recommended a 2 week course of antibiotics and my office will arrange outpatient cystoscopy and stent removals. True etiology of her hydronephrosis and refluxing system are not clear at this time. Will need further investigation the future if continues to have issues. Okay to discharge from urology standpoint Qualifiers: Hydronephrosis type: other Qualified Code(s): N13.39 - Other hydronephrosis Progress Note Subjective: feels better Narrative: some stent discomfort. Objective Initial Vital Signs Temp Pulse Resp BP Pulse Ox 98.4 F 102 16 102/60 100 06/07/18 23:10 06/07/18 23:10 06/07/18 23:10 06/07/18 23:10 06/07/18 23:10 - General physical appearance Present: no distress - Labs 06/10/18 11:46 06/10/18 03:54 Diabetes panel 06/10/18 Range/Units 03:54 Sodium 140 (136-145) mEq/L Potassium 4.4 (3.5-5.1) mEq/L Chloride 105 (98-107) mEq/L Carbon Dioxide 25 (23-29) mEq/L BUN 20 (6-20) mg/dL Creatinine 1.20 (0.60-1.20) mg/dL Glucose 129 H (70-105) mg/dL Calcium 9.1 (8.6-10.3) mg/dL Thyroid panel 06/10/18 Range/Units 03:54 TSH 0.248 L (0.340-5.600) mcIU/mL Calcium panel 06/10/18 Range/Units 03:54 Calcium 9.1 (8.6-10.3) mg/dL Pituitary panel 06/10/18 Range/Units 03:54 Sodium 140 (136-145) mEq/L Potassium 4.4 (3.5-5.1) mEq/L Chloride 105 (98-107) mEq/L Carbon Dioxide 25 (23-29) mEq/L BUN 20 (6-20) mg/dL Creatinine 1.20 (0.60-1.20) mg/dL Glucose 129 H (70-105) mg/dL Calcium 9.1 (8.6-10.3) mg/dL TSH 0.248 L (0.340-5.600) mcIU/mL Adrenal panel 06/10/18 Range/Units 03:54 Sodium 140 (136-145) mEq/L Potassium 4.4 (3.5-5.1) mEq/L Chloride 105 (98-107) mEq/L Carbon Dioxide 25 (23-29) mEq/L BUN 20 (6-20) mg/dL Creatinine 1.20 (0.60-1.20) mg/dL Glucose 129 H (70-105) mg/dL Calcium 9.1 (8.6-10.3) mg/dL Consult Discharge Plan - Plan Referrals: Andree Cardenas, POSTMASTER [Primary Care Provider] -
[2018-06-10 17:54] VITALS: BP 133/79
--- NOTE | 2018-06-10 19:50 | Discharge Summary ---
- NOTES TO OUTPATIENT PROVIDER Notes to Outpatient Provider: Discussed with patient in great detail about following up with primary care provider on 06/11/18 to recheck hemoglobin due to acute blood loss anemia. Patient is also to follow up with primary care provider concerning new diagnosis of hypothyroid started on levothyroxine Orders not resulted at time of discharge: Pending orders 06/10/18 11:02 EKG [ECG 12 lead ECG] [ECG] Stat 06/10/18 13:52 Culture,Urine [RM] Stat 06/10/18 20:00 Hemoglobin and Hematocrit [HEME] Q8H Date of Encounter: 06/10/18 Time of Encounter: 11:00 - Discharge Diagnosis (1) Acute pyelonephritis Priority: Primary Status: Inactive (2) Hydronephrosis, right Priority: Primary Status: Acute (3) YAEL (acute kidney injury) Priority: Primary Status: Acute (4) Acute blood loss anemia Priority: Primary Status: Acute Hospital course: Patient is a 33-year-old female with past medical history significant for opioid dependence who presented with a 3-4 day history of right-sided flank pain , protracted nausea, vomiting, minimal to zero oral intake, and some diarrhea. She developed fevers to 104 degrees Fahrenheit at home. She therefore went to the ER at [facility] where she was seen and evaluated and diagnosed with acute kidney injury and anemia. CT scan imaging was obtained which revealed concerning findings for polynephritis, hydronephrosis, and likely recently passed kidney stone on the right side. Patient was therefore transferred to [facility] for further workup and care. During patients hospital stay urology was consulted with regulations for cystoscopy and bilateral JJ stents were placed. Patient was also treated on IV antibiotics. Patient will complete a 14 day course of Cipro per urology recommendations. She was also found to have acute blood loss anemia and was transfused a total of 1 unit of packed red blood cells. Patients hemoglobin remained stable but low. Furthermore patient also found to have a asymptomatic bradycardia. Cardiology was consulted and suspected nocturnal bradycardia with no further medications. Patient anxious to get home therefore informed patient the importance of following up with primary care provider the next day on 06/11/18 to have hemoglobin checked due to acute blood loss anemia. Patient will also follow up with primary care provider concerning new diagnosis of hypothyroid started on levothyroxine. Patient verbalized understanding and stated that she would follow up with her primary care provider concerning the above on 06/11/18. - Time Spent with Patient Total time spent providing and/or coordinating discharge services: Less than 30 minutes - Discharge Medications Prescriptions: Ciprofloxacin [Cipro] 500 mg PO BID 14 Days #28 tablet Levothyroxine [Synthroid] 50 mcg PO 0630 #30 tablet Home Medications: Buprenorphine HCl/Naloxone HCl [Buprenorphin-Naloxon 8-2 mg Sl] 2 tab SL DAILY 05/03/18 [History] Omeprazole [PriLOSEC] 20 mg PO DAILY 06/08/18 [History] Ondansetron HCl 8 mg PO BID PRN 06/08/18 [History] Ciprofloxacin [Cipro] 500 mg PO BID 14 Days #28 tablet 06/10/18 [Rx] Levothyroxine [Synthroid] 50 mcg PO 0630 #30 tablet 06/10/18 [Rx] Allergies/Adverse Reactions: 3 Allergy/AdvReac Type Severity Reaction Status Date / Time No Known Allergies Allergy Verified 06/07/18 19:33 Date of admission: 06/08/18 03:01 Primary care physician: Andree Cardenas CNP Consults: 06/07/18 23:32 Consult to Nutrition [CONS] Routine Comment: Consulting Provider: NUTRITION Reason for Dietary Consult: Diet Education 06/08/18 03:01 Consult to Nephrology [CONS] Routine Consulting Provider: Kidney Melissa/IONA/ROZ/TRISTAN Reason for Consult: YAEL; hydronephrosis Call Completed: No Consult to Urology [CONS] Routine Consulting Provider: [facility] [place] Reason for Consult: YAEL; pyelonephtitis; hydornephrosis Call Completed: No 06/10/18 11:00 Consult to Cardiology [CONS] Routine Comment: Consulting Provider: [facility] [place] Reason for Consult: sudden bradycardiac 30-40's, minor chest pressure Call Completed: No - Constitutional Vitals: Temp Pulse Resp BP Pulse Ox 97.7 F 50 20 133/79 97 06/10/18 17:47 06/10/18 17:47 06/10/18 17:47 06/10/18 17:47 06/10/18 17:47 General appearance: Present: cooperative, mild distress, A&O X 3, pleasant, answers questions appropriately Exam: Gen.: Nonacute distress, alert and oriented 3 ENT: Mucosal membranes moist Respiratory: Lungs are clear to auscultation bilaterally without any wheezing rhonchi or rales Cardiovascular: Normal S1 and S2 regular rate rhythm no murmurs rubs or gallops Abdomen: Soft, nontender and nondistended with positive bowel sounds Extremities: No lower extremity edema Skin: Normal color - Patient Status Disposition: Home, Self-Care - Discharge Instructions Follow Up With: Andree Cardenas, RESIDENT INTERN [Primary Care Provider] -
--- NOTE | 2018-06-14 09:20 | Electrocardiograph Report ---
[address] [place], [place] [address] Test Date: 2018-06-10 Pat Name: Debra Alatorre Department: 109 Room: 2A13 Gender: F Filling Separator: [id number] : 1985 Requested By: Syed Raman Order Number: [id number] Reading MD: Basim oBucher Measurements Intervals [place] Rate: 37 P: SC: 0 QRS: 22 QRSD: 72 T: 28 QT: 491 QTc: 408 Interpretive Statements Sinus bradycardia Low voltage QRS complexes Nonspecific ST-T changes Electronically Signed On 06-14-2018 9:18:50 EDT by Basim Boucher
--- NOTE | 2018-06-14 09:26 | Electrocardiograph Report ---
[address] [place], [place] [address] Test Date: 2018-06-10 Pat Name: Debra Alatorre Department: 109 Room: 2A13 Gender: F Gore Seamer: : 1985 Requested By: Syed Raman Order Number: [id number] Reading MD: Basim Boucher Measurements Intervals [place] Rate: 45 P: CT: 0 QRS: 23 QRSD: 70 T: 48 QT: 435 QTc: 390 Interpretive Statements SINUS BRADYCARDIA ECTOPIC ATRIAL BEATS NONSPECIFIC T-WAVE ABNORMALITY ABNORMAL RHYTHM ECG Electronically Signed On 06-14-2018 9:24:51 EDT by Basim Boucher
== END 2018-06-10 20:41 | disposition home or self-care (01) | DRG 463 ==
LOC: 2ANU → SUATTDRO 06-08 03:01
PROVIDERS: ADMIT Family Medicine; ATTEND Hospitalist